=== PATIENT | female | born 1955 | race Caucasian/White ===

== ENCOUNTER → 2016-04-11 | Outpatient (REF) | payer BC ==
[2016-04-11 19:42] LABS: PERCENT SATURATION 21.1 % (13.2-37.4)
== END ==
LOC: M LAB REF 16:25
PROVIDERS: ATTEND Internal Medicine
DX: D50.9 Iron deficiency anemia, unspecified (principal)

== ENCOUNTER → 2016-05-20 | Outpatient (CLI) | payer BC ==
[~2016-05-20] VITALS: Ht 157.5 cm; Wt 86.2 kg
[~2016-05-20] MED LIST: AZEL0.1S3; FERR325T16 PO; FLON1SPR; MONT10TA2 PO; NS 1,000 ML IV SCH; OMEP40CA2 PO; PROPOFOL 200 MG/20 ML VIAL As Ordered ONE
--- NOTE | 2016-05-20 10:26 | ROOR ---
Patient Name: Alcira Silva Procedure Date: 05/20/2016 9:26 AM Date of : 1955 Age: 60 Room: [facility] Gender: Female Note Status: Finalized Procedure: Colonoscopy Indications: High risk colon cancer surveillance: Personal history of colonic polyps Providers: Delio PAYNE MD Referring MD: Velma Nevarez DO Requesting Provider: Medicines: Monitored Anesthesia Care Complications: No immediate complications. Procedure: Pre-Anesthesia Assessment: - The heart rate, respiratory rate, oxygen saturations, blood pressure, adequacy of pulmonary ventilation, and response to care were monitored throughout the procedure. The Colonoscope was introduced through the anus and advanced to the cecum, identified by appendiceal orifice and ileocecal valve. The patient tolerated the procedure well. The quality of the bowel preparation was good. Findings: The perianal exam findings include non-thrombosed external hemorrhoids. (Exam: Complete, Prep: Good or Excellent.) A 13 mm polyp was found in the splenic flexure. The polyp was flat. The polyp was removed with a hot snare. Polyp resection was incomplete, and the resected tissue was partially retrieved. Coagulation for tissue destruction using argon beam at 0.8 liters/minute and 25 rodriguez was successful. Area was successfully injected with 1 mL Anne ink for tattooing. Multiple medium-mouthed diverticula were found in the sigmoid colon. The colon (entire examined portion) was significantly redundant. Advancing the scope required withdrawing the scope and replacing with the adult endoscope. A 4 mm polyp was found in the ascending colon. The polyp was sessile. The polyp was removed with a cold snare. Resection and retrieval were complete. Impression: - Non-thrombosed external hemorrhoids found on perianal exam. - One 13 - 15 mm flat polyp at the splenic flexure, partially removed with a hot snare. Polyp resection was incomplete with snare, and the resected tissue was partially retrieved. Residual treated with argon beam coagulation. I suspect possible residual polyp, therefore location next to this polyp/polypoid fold was Injected with anne ink for future reference. - Diverticulosis in the sigmoid colon. - Redundant colon. - One 4 mm polyp in the ascending colon, removed with a cold snare. Resected and retrieved. Recommendation: - Repeat colonoscopy in 6 months for surveillance/retreatment of polyps greater than 1 cm in size. - Await pathology results. Delio Payne MD Delio PAYNE MD 05/20/2016 10:26:08 AM This report has been signed electronically. Number of Addenda: 0 Note Initiated On: 05/20/2016 9:26 AM Estimated Blood Loss: Estimated blood loss: none.
--- NOTE | 2016-05-20 11:19 | REP ---
PORTABLE CHEST: AP portable view of the chest is performed. There is mild linear bibasilar fibroatelectatic change. No infiltrate or pulmonary edema is seen. The heart is normal in size and the mediastinal silhouette is unremarkable. IMPRESSION: No acute infiltrate. Signed by Dorian Hung MD 05/20/2016 04:58 P
[2016-05-20 11:40] VITALS: BP 188/84
== END ==
LOC: M OPP 08:20
PROVIDERS: ATTEND Internal Medicine Gastroenterology
DX: Z12.11 Encounter for screening for malignant neoplasm of colon (principal); K64.4 Residual hemorrhoidal skin tags; D12.3 Benign neoplasm of transverse colon; K57.30 Diverticulosis of large intestine without perforation or abscess without bleeding; D12.2 Benign neoplasm of ascending colon; Q43.8 Other specified congenital malformations of intestine; R12 Heartburn; D64.9 Anemia, unspecified; M19.90 Unspecified osteoarthritis, unspecified site; J45.909 Unspecified asthma, uncomplicated; R06.83 Snoring; Z79.899 Other long term (current) drug therapy

== ENCOUNTER → 2016-06-14 | Outpatient (CLI) | payer BC ==
[~2016-06-14] MED LIST changes: -NS 1,000 ML IV SCH; -PROPOFOL 200 MG/20 ML VIAL As Ordered ONE
== END ==
LOC: M SLEEP HO 10:21
PROVIDERS: ATTEND Nurse Practitioner Adult Health
DX: G47.30 Sleep apnea, unspecified (principal)

== ENCOUNTER → 2016-08-11 | Outpatient (REF) | payer BC ==
[2016-08-11 13:52] LABS: PERCENT SATURATION 21.9 % (13.2-37.4)
== END ==
LOC: M LAB REF 12:21
PROVIDERS: ATTEND Internal Medicine
DX: D50.9 Iron deficiency anemia, unspecified (principal)

== ENCOUNTER 2016-10-20 10:54 | Outpatient (CLI) | payer BC ==
[~2016-10-20] VITALS: Ht 157.5 cm; Wt 86.2 kg
[~2016-10-20 10:54] MED LIST changes: +ACET-683 PO; +ALBU17IN PO; +BACL10TA2 PO; +DOXY100T16 PO; +ESTE500T PO; +MULT1TAB18 PO; +PRED20TA PO; +SYMB80INH PO
[2016-10-20] MEDS ORDERED: NS 1,000 ML IV ONE (12:00)
--- NOTE | 2016-10-20 14:05 | ROOR ---
Patient Name: Alcira Silva Procedure Date: 10/20/2016 1:50 PM Date of : 1955 Age: 60 Room: [facility] Gender: Female Note Status: Finalized Procedure: Upper GI endoscopy Indications: Surveillance for malignancy due to personal history of Lopez's esophagus, Follow-up of previous ablation treatment of Lopez's esophagus Providers: Delio BAKER MD Referring MD: Velma Nevarez DO Requesting Provider: Medicines: Monitored Anesthesia Care Complications: No immediate complications. Procedure: Pre-Anesthesia Assessment: - The heart rate, respiratory rate, oxygen saturations, blood pressure, adequacy of pulmonary ventilation, and response to care were monitored throughout the procedure. The Endoscope was introduced through the mouth, and advanced to the second part of duodenum. The upper GI endoscopy was accomplished without difficulty. The patient tolerated the procedure well. Findings: The Z-line was irregular and was found 37 cm from the incisors. This was biopsied with a cold forceps for histology. A small hiatal hernia was present. The exam was otherwise without abnormality. Impression: - Z-line irregular, 37 cm from the incisors. Biopsied. - Small hiatal hernia. - The examination was otherwise normal. Recommendation: - Use Prilosec (omeprazole) 20 mg PO BID for the rest of the patient's life.for barretts esophagus history - Telephone endoscopist for pathology results in 2 weeks. - repeat ablation therapy vs surveillance endoscopy in 3 years will be determined depending on biopsies.--Call me in 2 weeks for results. Delio Baker MD Delio BAKER MD 10/20/2016 2:04:38 PM This report has been signed electronically. Number of Addenda: 0 Note Initiated On: 10/20/2016 1:50 PM Estimated Blood Loss: Estimated blood loss: none.
--- NOTE | 2016-10-20 14:28 | ROOR ---
Patient Name: Alcira Silva Procedure Date: 10/20/2016 1:50 PM Date of : 1955 Age: 60 Room: [facility] Gender: Female Note Status: Finalized Procedure: Colonoscopy Indications: High risk colon cancer surveillance: Personal history of colonic polyps, Surveillance: Personal history of piecemeal removal of large sessile adenoma on last colonoscopy (less than 1 year ago) Providers: Delio BAKER MD Referring MD: Velma Nevarez DO Requesting Provider: Medicines: Monitored Anesthesia Care Complications: No immediate complications. Procedure: Pre-Anesthesia Assessment: - The heart rate, respiratory rate, oxygen saturations, blood pressure, adequacy of pulmonary ventilation, and response to care were monitored throughout the procedure. The Colonoscope was introduced through the anus and advanced to the cecum, identified by appendiceal orifice and ileocecal valve. The colonoscopy was performed without difficulty. The patient tolerated the procedure well. The quality of the bowel preparation was adequate and fair. Findings: The perianal and digital rectal examinations were normal. (EXAM: Complete, PREP: Fair/Adequate) Two sessile polyps were found in the descending colon. The polyps were diminutive in size. These polyps were removed with a cold snare. Resection and retrieval were complete. Multiple medium-mouthed diverticula were found in the sigmoid colon. A tattoo was seen at the splenic flexure. A post-polypectomy scar was found at the tattoo site. There was no evidence of residual polyp tissue. Small Internal Hemorrhoids. Impression: - Preparation of the colon was fair. - A tattoo was seen at the splenic flexure. A post-polypectomy scar was found at the tattoo site. There was no evidence of residual polyp tissue. - Two diminutive polyps in the descending colon, removed with a cold snare. Resected and retrieved. - Moderate diverticulosis in the sigmoid colon. - Small Internal Hemorrhoids. - The exam was otherwise normal to the cecum. Recommendation: - Repeat colonoscopy in 3 years for surveillance. Delio Baker MD Delio BAKER MD 10/20/2016 2:27:55 PM This report has been signed electronically. Number of Addenda: 0 Note Initiated On: 10/20/2016 1:50 PM Estimated Blood Loss: Estimated blood loss: none.
[2016-10-21] MEDS ORDERED: VITMTA PO (06:37)
[2016-10-21] MEDS ORDERED: MIRA3350 PO (06:37)
[2017-01-12] MEDS ORDERED: ADV250INH INH (10:22)
== END 2016-10-20 14:59 | disposition home or self-care (01) ==
LOC: M OPP 10:54
PROVIDERS: ATTEND Internal Medicine Gastroenterology
DX: Z09 Encounter for follow-up examination after completed treatment for conditions other than malignant neoplasm (principal); Z86.010 Personal history of colon polyps; D12.4 Benign neoplasm of descending colon; K57.30 Diverticulosis of large intestine without perforation or abscess without bleeding; K64.8 Other hemorrhoids; K22.70 Barrett's esophagus without dysplasia; K22.8 Other specified diseases of esophagus; K44.9 Diaphragmatic hernia without obstruction or gangrene; R12 Heartburn; D64.9 Anemia, unspecified; M54.2 Cervicalgia; G43.909 Migraine, unspecified, not intractable, without status migrainosus; J45.909 Unspecified asthma, uncomplicated; G47.30 Sleep apnea, unspecified; R06.83 Snoring; J01.90 Acute sinusitis, unspecified; Z87.891 Personal history of nicotine dependence; Z79.899 Other long term (current) drug therapy

== ENCOUNTER 2016-10-21 04:07 | Inpatient (IN) | payer BC ==
[~2016-10-21] VITALS: Ht 157.5 cm; Wt 86.3 kg
[2016-10-21] MEDS ORDERED: GI COCKTAIL 50ML BTL(HYOSCYAMINE/MAALOX/LIDOCAINE VISCOUS)(1:3:1) PO ONE (04:45)
[2016-10-21] MEDS ORDERED: MORPHINE 4 MG/ML 1ML SYRINGE IV ONE (04:45)
[2016-10-21] MEDS ORDERED: METOCLOPRAMIDE INJ 10MG/2ML VIAL (J2765) IV ONE (04:45)
[2016-10-21 05:22] LABS: BASO % 0.2 % (0.0-1.0); EOS % 0.5 % (0.0-3.0); LARGE UNSTAINED CELL # 0.1 K/mm3 (0.0-0.4); LARGE UNSTAINED CELL % 0.6 % (0.0-4.0); LYMPH % 7.8 % (24.0-44.0); MEAN CORPUSCULAR HEMOGLOBIN 28.4 pg (27.0-33.0); MEAN CORPUSCULAR HGB CONC 32.9 g/dl (32.0-36.5); MEAN CORPUSCULAR VOLUME 86.4 fl (80.0-96.0); MONO # 0.6 K/mm3 (0.0-0.8); MONO % 4.9 % (0.0-5.0); NEUTROPHILS # 9.8 K/mm3 (1.8-7.7); PLATELET COUNT, AUTOMATED 251 k/mm3 (150-450); RED CELL DISTRIBUTION WIDTH 13.3 % (11.5-14.5); WHITE BLOOD COUNT 11.4 K/mm3 (4.0-10.0)
[2016-10-21 05:40] LABS: ALBUMIN 3.7 GM/DL (3.2-5.2); ALBUMIN/GLOBULIN RATIO 1.28 (1.00-1.93); ALKALINE PHOSPHATASE 62 U/L (45-117); ALT/SGPT 82 U/L (12-78); AMYLASE 196 U/L (25-115); ANION GAP 9 MEQ/L (8-16); AST/SGOT 88 U/L (15-37); BILIRUBIN,DIRECT 0.3 MG/DL (0.0-0.2); BILIRUBIN,TOTAL 0.6 MG/DL (0.2-1.0); BLOOD UREA NITROGEN 8 MG/DL (7-18); CALCIUM LEVEL 8.5 MG/DL (8.5-10.1); CARBON DIOXIDE LEVEL 27 MEQ/L (21-32); CHLORIDE LEVEL 109 MEQ/L (98-107); CREATININE FOR GFR 0.64 MG/DL (0.55-1.02); GLOMERULAR FILTRATION RATE > 60.0 (>51); GLUCOSE, FASTING 144 MG/DL (70-105); POTASSIUM SERUM 3.9 MEQ/L (3.5-5.1); SODIUM LEVEL 145 MEQ/L (136-145); TOTAL PROTEIN 6.6 GM/DL (6.4-8.2)
[2016-10-21] MEDS ORDERED: NS 1,000 ML IV ONE ×2 (06:00→19:45)
[2016-10-21] MEDS ORDERED: ISOVUE-370 76% 100ML VIAL (Q9967) As Ordered ONE (06:03)
[2016-10-21] MEDS ORDERED: MIRA3350 PO (06:37)
[2016-10-21] MEDS ORDERED: VITMTA PO (06:37)
--- NOTE | 2016-10-21 06:40 | REPUSA ---
CLINICAL HISTORY: Abdominal pain. TECHNIQUE: Multiple axial, sagittal and coronal CT images were obtained through the abdomen and pelvi s after administration of intravenous contrast material. COMMENTS: Small sliding hiatal hernia. Thickening of the gastroesophageal junction. The liver is moderately enlarged with decreased attenuation without mass or defect. There is mild ext rahepatic biliary ductal dilatation. The spleen is normal. The gallbladder is distended. Diffuse thic kening of the wall of the gallbladder. The pancreas is of normal contour and attenuation characterist ics. There is no evidence of adrenal mass. Minimal peripancreatic fat stranding. Both kidneys demonstrate prompt and equal nephrograms. The kidneys are normal in size, shape and conf iguration. There is no evidence of renal or ureteral mass. No renal or ureteral calculi are identifie d. There is no hydroureter or hydronephrosis. No evidence for appendicitis. There is no bowel wall thickening. No evidence for small or large leo l obstruction. There is no evidence of abdominal ascites or lymphadenopathy. There is no evidence of intrinsic or extrinsic bladder mass. Thickened bladder. There is no pelvic as cites or lymphadenopathy. Uncomplicated diverticulosis. Images of the lung bases show no evidence of pleural or parenchymal mass. There are no pleural effusi ons. The bony structures are free of lytic or blastic lesions. IMPRESSION: Hepatomegaly with fatty infiltration. Suspected acute cholecystitis. Mildly dilated extrahepatic biliary tree. Minimal pancreatitis. Small sliding hiatal hernia. Thickened gastroesophageal junction. Thank you for your kind referral of this patient.
[2016-10-21] MEDS ORDERED: BACLOFEN 10 MG TAB PO PRN (08:15)
[2016-10-21] MEDS ORDERED: ALBUTEROL 90 MCG/ACT 8GM HFA INHALER INH PRN (08:15)
--- NOTE | 2016-10-21 08:22 | REP ---
Abdominal upper quadrant ultrasound: There is a negative Sanchez's sign to transducer pressure. There is biliary sludge in the gallbladder. There is no evidence of cholelithiasis. There is no gallbladder wall thickening or pericholecystic fluid. There is no intrahepatic or extrahepatic biliary duct dilatation, the common duct measures 4.5 mm in diameter. The liver is homogeneous but echogenic compatible with hepato steatosis. The pancreas is obscured by bowel gas. There is no right renal calculus, mass, cyst or hydronephrosis. The right kidney is normal size measuring 13.0 cm craniocaudad length. Impression: No biliary duct dilatation. No cholelithiasis. There is biliary sludge in the gallbladder. Hepato steatosis. Pancreas obscured by bowel gas. Signed by Dorian Quintero MD 10/21/2016 08:14 A
--- NOTE | 2016-10-21 08:58 | REP ---
ABDOMEN, FLAT AND UPRIGHT; PA CHEST, THREE VIEWS: HISTORY: Epigastric pain. Air is present in small and large intestine. There are no air fluid levels or dilated loops of intestine. There is no pneumoperitoneum. The lungs are clear. IMPRESSION: Nonspecific bowel gas pattern. Signed by Franco Jama MD 10/21/2016 09:31 A
[2016-10-21] MEDS: SYMBICORT 80/4.5MCG INHALER 6GM INH SCH ×2 (09:00→20:58)
[2016-10-21 11:05] VITALS: BP 155/72
[2016-10-21] MEDS: NS 1,000 ML IV SCH ×3 (11:10→21:55)
[2016-10-21] MEDS: MEROPENEM INJ 1 GM in D5W MINI-BAG PLUS 100 ML IV SCH ×2 (11:10→17:43)
[2016-10-21] MEDS: PANTOPRAZOLE 40MG INJ (PROTONIX) (C9113) IV SCH (11:11)
[2016-10-21] MEDS: MORPHINE 2 MG/ML 1ML SYRINGE IV PRN ×3 (11:11→17:44)
[2016-10-21] MEDS: ONDANSETRON 4MG/2ML VIAL (J2405) IV PRN ×2 (11:11→17:43)
[2016-10-21] MEDS: MONTELUKAST 10 MG TAB PO SCH (11:12)
[2016-10-21] MEDS: ENOXAPARIN 40 MG/0.4 ML SYRINGE (J1650) SC SCH (11:12)
--- NOTE | 2016-10-21 11:18 | REP ---
MRCP EXAM: MRCP exam is accomplished utilizing multiple heavily T2-weighted sequences in the axial and coronal planes with MIP reconstruction images performed. The gallbladder is moderately distended with no definite filling defect. There does appear to be gallbladder wall edema. The central intrahepatic bile ducts are slightly dilated. There is slight dilatation of the common bile duct up to 8 mm. There appears to be focal narrowing in the distal common bile duct. There also appears to be a somewhat linear filling defect in the mid and distal common bile duct . This may represent a clot. The pancreatic duct is mildly dilated up to 5 mm. The liver and pancreatic signal is unremarkable. There are small cysts in the left kidney. No free fluid is seen in the visualized abdomen. IMPRESSION: Moderately distended gallbladder with diffuse gallbladder wall edema. Very mild dilatation of intrahepatic bile ducts centrally and also of the common bile duct. There appears to be focal narrowing of the distal common bile duct. A linear filling defect in the mid to distal common bile duct may represent a clot. There is mild dilatation of the pancreatic duct. Signed by Dorian Hung MD 10/21/2016 05:08 P
[2016-10-21] MEDS: AZELASTINE 137MCG NASAL SPY 30 ML (ASTELIN) SCH (11:34)
[2016-10-21 14:00] VITALS: BP 131/62
[2016-10-21] MEDS: ACETAMINOPHEN TAB 650MG DOSE (2X325MG) PO PRN (15:36)
--- NOTE | 2016-10-21 18:29 | HPEPDOC ---
General Date of Admission Oct 21, 2016 at 08:13 Chief Complaint The patient is a 60-year-old female admitted with a reason for visit of Acute Cholecystitis. Source: Patient Exam Limitations: No limitations History of Present Illness 60-year-old female with past medical history of asthma, obesity, Lopez's esophagus status post ablation in the past, and history of sessile polyp on colonoscopy in 2016 presented to the ER with a chief complaint of nausea, vomiting, and abdominal pain over the last 24 hours. The patient states that she had a surveillance EGD and Colonoscopy with Dr. Maria yesterday and notes that there were no acute findings noted. Subsequent patient states that she has developed abdominal pain in the supraumbilical/epigastric area with associated nausea and vomiting. She denies a similar occurrence in the past. She denies recent travel, or sick contacts. She denied any episodes of diarrhea. There were no associated alleviating or aggravating factors. The patient presents to the ER for further evaluation and management of the same. In the ER, laboratory work was suggestive of pancreatitis with mild elevation of liver function tests. A CT scan of the abdomen revealed suspected acute cholecystitis with mild dilated extrahepatic biliary tree. An ultrasound of the gallbladder however revealed no biliary duct dilatation or any cholelithiasis. An MRCP was ordered and this revealed mild dilatation of intrahepatic bile ducts and also the common bile duct, a linear filling defect in the mid to distal common bile duct possibly parts representative of a clot. The patient was subsequently admitted to the hospitalist service, and a consult was placed to gastroenterology for further evaluation and management. Home Medications Scheduled (Flonase Allergy Relief) 50 Mcg/Act Spr, 2 SPRAYS NA QHS, (Reported) Azelastine Hydrochloride (Azelastine HCl) 137 Mcg/[place] Spr, 2 SPRAY NA DAILY, ( Reported) Budesonide/Formoterol (Symbicort 80-4.5 Mcg/Act) 60 Puff/Inhaler Aers, 1 PUFF PO BID, (Reported) Ferrous Gluconate (Ferrous Gluconate) 324 Mg Tab, 324 MG PO QPM, (Reported) Montelukast Sodium (Montelukast Sodium) 10 Mg Tab, 10 MG PO DAILY, (Reported) Multivitamins *[facility] STOCKED* (Thera M Plus *[facility] STOCKED*) 1 Tab Tab, 1 TAB PO QPM , (Reported) Omeprazole (Omeprazole) 40 Mg Cap, 40 MG PO QPM, (Reported) Scheduled PRN Acetaminophen (Acetaminophen Extra Stren) 500 Mg Tab, 1,000 MG PO Q6HP PRN for PAIN, (Reported) Albuterol Sulfate (Ventolin Hfa) 200 Puff/8 Gm Aers, 2 PUFFS PO QID PRN for SHORTNESS OF BREATH, (Reported) Baclofen (Baclofen) 10 Mg Tab, 10 MG PO DAILY PRN for MUSCLE SPASMS, (Reported) Polyethylene Glycol (Miralax) 1 Pow Pow, 17 GM PO DAILY PRN for CONSTIPATION, ( Reported) Allergies Coded Allergies: No Known Allergies (Unverified , 10/13/16) Past Medical History Medical History As noted in HPI. Surgical History Lopez's esophagus ablation, colonoscopy Family History Significant Family History: Other (multiple family members on both sides with a history of heart disease) Social History * Smoker: Denies Alcohol: Denies Drugs: denies Recent Travel/Sick Contacts: Denies: Recent travel, Recent sick contacts Lives at home with her . Retired. Functionally independent at baseline. Review of Symptoms Other systems 10 point review of systems negative unless otherwise specified in HPI. Physical Examination General Exam: Positive: Alert, Cooperative, No Acute Distress ENT Exam: Positive: Atraumatic, Mucous membr. moist/pink Neck Exam: Negative: JVD Chest Exam: Positive: Clear to auscultation, Normal air movement Heart Exam: Positive: Rate Normal, Normal S1, Normal S2 Telemetry: Positive: Sinus Abdomen Exam: Positive: Soft, Tenderness (mild tenderness to deep palpation in the supraumbilical/epigastric area. No rebound tenderness or rigidity or guarding noted.) Extremity Exam: Negative: Tenderness, Swelling Psych Exam: Positive: Oriented x 3 Vital Signs Vital Signs Date Time Temp Pulse Resp B/P (MAP) Pulse Ox O2 Delivery O2 Flow Rate FiO2 10/21/16 17:44 16 10/21/16 14:00 100.3 118 131/62 (85) 92 Room Air Laboratory Data Labs 24H Laboratory Tests 2 10/21/16 05:05: White Blood Count 11.4H, Red Blood Count 4.60, Hemoglobin 13.1, Hematocrit 39.8 , Mean Corpuscular Volume 86.4, Mean Corpuscular Hemoglobin 28.4, Mean Corpuscular Hemoglobin Concent 32.9, Red Cell Distribution Width 13.3, Platelet Count 251, Neutrophils (%) (Auto) 86.0H, Lymphocytes (%) (Auto) 7.8L, Monocytes (%) (Auto) 4.9, Eosinophils (%) (Auto) 0.5, Basophils (%) (Auto) 0.2, Neutrophils # (Auto) 9.8H, Lymphocytes # (Auto) 1.0L, Monocytes # (Auto) 0.6, Eosinophils # (Auto) 0.0, Basophils # (Auto) 0.0, Large Unclassified Cells % 0.6 , Large Unclassified Cells # 0.1, Anion Gap 9, Glomerular Filtration Rate > 60.0 , Calcium Level 8.5, Aspartate Amino Transf (AST/SGOT) 88H, Alanine Aminotransferase (ALT/SGPT) 82H, Alkaline Phosphatase 62, Total Bilirubin 0.6, Direct Bilirubin 0.3H, Total Creatine Kinase 42, Creatine Kinase MB 1.0, Creatine Kinase MB Relative Index 2.38, Troponin I < 0.02, Total Protein 6.6, Albumin 3.7, Albumin/Globulin Ratio 1.28, Amylase Level 196H, Lipase 2324H 10/21/16 16:15: Total Creatine Kinase 41, Creatine Kinase MB 1.0, Creatine Kinase MB Relative Index 2.43, Troponin I < 0.02 CBC/BMP Laboratory Tests 10/21/16 05:05 Red Blood Count 4.60, Mean Corpuscular Volume 86.4, Mean Corpuscular Hemoglobin 28.4, Mean Corpuscular Hemoglobin Concent 32.9, Red Cell Distribution Width 13.3 , Neutrophils (%) (Auto) 86.0 H, Lymphocytes (%) (Auto) 7.8 L, Monocytes (%) ( Auto) 4.9, Eosinophils (%) (Auto) 0.5, Basophils (%) (Auto) 0.2, Neutrophils # ( Auto) 9.8 H, Lymphocytes # (Auto) 1.0 L, Monocytes # (Auto) 0.6, Eosinophils # ( Auto) 0.0, Basophils # (Auto) 0.0 Microbiology Microbiology 10/21/16 Blood Culture, Received Pending Plan / VTE VTE Prophylaxis Ordered?: Yes Plan Plan Abdominal pain, nausea, vomiting 2/[address] scan of the abdomen revealed suspected acute cholecystitis with mild dilated extrahepatic biliary tree. Ultrasound of the gallbladder however revealed no biliary duct dilatation or any cholelithiasis. MRCP revealed mild dilatation of intrahepatic bile ducts and also the common bile duct, a linear filling defect in the mid to distal common bile duct possibly parts representative of a clot. Lipase level of 2300 noted IV fluid hydration Nothing by mouth Pain medications ordered We will continue to monitor the patient's progress Mild Dilatation of Intrahepatic Bile Duct on MRCP ?Clot noted on MRCP LFTs also noted to be slightly elevated AST/ALT: 88/82 I did discuss these results and consult GI--we will cont with management as delineated above--If patient's LFTs worsen, or if clinically indicated--we will consider an Endoscopic U/S tomorrow Blood Cultures ordered Meropenem 1gm q8h ordered for empiric coverage We will cont to monitor Asthma, stable Continue albuterol when necessary, Symbicort, Singulair GERD, history of Lopez's esophagus Protonix DVT prophylaxis Lovenox subcutaneously JULIAN PERES MD Oct 21, 2016 18:29
--- NOTE | 2016-10-21 19:41 | ECGEPIP ---
Stationary ECG Study [facility] - ED Test Date: 2016-10-21 Pat Name: MISSY MATHEW Department: Room: - Gender: F Manufacturing Business Analyst: : 1955 Requested By: NATASHA BAILEY Order Number: [id number] Reading MD: Gabino Ramirez Measurements Intervals [place] Rate: 80 P: 50 SC: 150 QRS: 14 QRSD: 85 T: 30 QT: 365 QTc: 423 Interpretive Statements SINUS RHYTHM LOW QRS VOLTAGE IN PRECORDIAL LEADS NO OLD ECG FOR COMPARISON Electronically Signed On 10-21-2016 19:40:52 EDT by Gabino Ramirez
[2016-10-21 20:07] LABS: CHOLESTEROL LEVEL 150 MG/DL (<200); TRIGLYCERIDES LEVEL 61 MG/DL (<150)
[2016-10-21] MEDS: METOCLOPRAMIDE INJ 10MG/2ML VIAL (J2765) IV PRN (20:14)
--- NOTE | 2016-10-21 20:42 | CR.PDOC ---
[facility] Consultation Consultation DATE OF CONSULTATION: Oct 21, 2016 at 17:05 PRIMARY CARE PHYSICIAN: Dr. Christophe Cuevas REFERRING PROVIDER: Dr. Romano ATTENDING PHYSICIAN: Dr. Romano REASON FOR CONSULTATION/CHIEF COMPLAINT: Pancreatitis and abnormal imaging. HISTORY OF PRESENT ILLNESS: 60-year-old female with asthma, obesity ( BMI 35), Lopez's esophagus status post ablation in the past, and history of sessile polyp on colonoscopy in 2016 presented to the ER with complaints of nausea, vomiting, and abdominal pain. Work up showed elevated lipase and MRCP showed prominent CBD -- GI consulted for the same. Patient reports that the she started having epigastric abdominal pain with nausea and vomiting after she went home after the endoscopic procedures she had yesterday in [facility]. She reports having problems in past as well with anesthesia medications and she feels nauseous usually. Denies any fever at home but had fever during admission. Pertinent negative GI symptoms: Patient denies having alcohol, OTC medications, fall or injury to abdomen, diarrhea, hematemesis, melena or hematochezia. Patient is having regular bowel movements and passing gas. 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 Skin: No rash : No hematuria, No burning sensation of the urine ENT: No ear discharge/ pain, No dysphagia. Eyes: No photophobia. ALLERGIES: NKDA. HOME MEDICATIONS: reviewed. MEDICAL H/O: As above. SURGICAL H/O: None on abdomen. SOCIAL H/O: Denies Alcohol, smoking, IVDA/ drugs. FAMILY H/O OF GI CANCERS - None PRIOR ENDOSCOPIES: --- EGD and Colonoscopy -- results reviewed. PRIOR GI EVALUATION: Follows with Dr. Baker Exam: Vitals: reviewed GENERAL: Alert and oriented x 3, Some distress form pain. HEENT: NO pallor, no icterus. Normal oropharynx, NO cervical lymph nodes. CHEST: symmetric with bilateral clear air entry, CVS: S1, S2 heard, normal, no murmurs . ABDOMEN: Obese, no surgical scars, epigastric tenderness with no rigidity or guarding, no palpable masses, normal bowel sounds heard. RECTAL EXAM: Patient refused / Deferred at this time. EXTREMITIES: no pedal edema, pulses palpable. HEAT TREATER HELPER: no focal motor or sensory deficits. Moves all extremities SKIN: no rash. Labs: reviewed. Normal Bilirubin and ALP. Elevated lipase. Imaging: reviewed. MRCP reviewed. Impression: - Elevated lipase and typical abdominal pain --- Acute pancreatitis -- unclear etiology -- DDx- medications vs idiopathic. No imaging evidence of necrosis. - Abnormal MRCP showing prominent CBD but normal bilirubin and No gall stones. Likely artifact. Will need to closely monitor clinical course. - New onset fever -- need to r/o sepsis. Recommendations: -- NPO for now -- IV fluids -- prefer ringers lactate - Give one litre bolus drip and start at 200 cc/ hour for first 12 hours and then decrease to atleast 100 cc/ hour for the next 12 hours. -- Empiric broad spectrum antibiotics. -- Send blood cultures prior to antibiotics dose. -- Rpeat LFTs and CBC daily -- If worsening LFTs need to transfer to [place] -- If stable LFTs and clinical status improves with conservative therapy will need elective evaluation with EUS and/ or ERCP -- The plan of care discussed with patient and all her questions were answered. Also updated Dr. Baker (primary screw machine adjuster automatic). -- The recommendations updated to primary team. Allergies Coded Allergies: No Known Allergies (Unverified , 10/13/16) Home Medications Scheduled (Flonase Allergy Relief) 50 Mcg/Act Spr, 2 SPRAYS NA QHS, (Reported) Azelastine Hydrochloride (Azelastine HCl) 137 Mcg/[place] Spr, 2 SPRAY NA DAILY, ( Reported) Budesonide/Formoterol (Symbicort 80-4.5 Mcg/Act) 60 Puff/Inhaler Aers, 1 PUFF PO BID, (Reported) Ferrous Gluconate (Ferrous Gluconate) 324 Mg Tab, 324 MG PO QPM, (Reported) Montelukast Sodium (Montelukast Sodium) 10 Mg Tab, 10 MG PO DAILY, (Reported) Multivitamins *[facility] STOCKED* (Thera M Plus *[facility] STOCKED*) 1 Tab Tab, 1 TAB PO QPM , (Reported) Omeprazole (Omeprazole) 40 Mg Cap, 40 MG PO QPM, (Reported) Scheduled PRN Acetaminophen (Acetaminophen Extra Stren) 500 Mg Tab, 1,000 MG PO Q6HP PRN for PAIN, (Reported) Albuterol Sulfate (Ventolin Hfa) 200 Puff/8 Gm Aers, 2 PUFFS PO QID PRN for SHORTNESS OF BREATH, (Reported) Baclofen (Baclofen) 10 Mg Tab, 10 MG PO DAILY PRN for MUSCLE SPASMS, (Reported) Polyethylene Glycol (Miralax) 1 Pow Pow, 17 GM PO DAILY PRN for CONSTIPATION, ( Reported) DUKE GEORGES MD Oct 21, 2016 20:42
[2016-10-21] MEDS: MULTIVITAMINS/MINERALS THERAP 1 TAB PO SCH (21:55)
[2016-10-21] MEDS: FERROUS GLUCONATE 324 MG TAB PO SCH (21:56)
[2016-10-21 22:00] VITALS: BP 129/66
[2016-10-21] MEDS: FLUTICASONE PROP 0.05% NASAL SPRAY 16 GM (FLONASE) SCH (22:47)
[2016-10-22] VITALS (8 sets, daily range): BP systolic 121–139; BP diastolic 63–76
[2016-10-22] MEDS: NS 1,000 ML IV SCH ×6 (00:19→23:40)
[2016-10-22] MEDS: MEROPENEM INJ 1 GM in D5W MINI-BAG PLUS 100 ML IV SCH ×3 (00:19→18:30)
[2016-10-22] MEDS: ACETAMINOPHEN TAB 650MG DOSE (2X325MG) PO PRN (06:10)
[2016-10-22 06:38] LABS: MEAN CORPUSCULAR HEMOGLOBIN 28.5 pg (27.0-33.0); MEAN CORPUSCULAR HGB CONC 32.8 g/dl (32.0-36.5); MEAN CORPUSCULAR VOLUME 86.9 fl (80.0-96.0); RED CELL DISTRIBUTION WIDTH 13.3 % (11.5-14.5); WHITE BLOOD COUNT 9.1 K/mm3 (4.0-10.0)
[2016-10-22 07:02] LABS: ALBUMIN 2.8 GM/DL (3.2-5.2); ALBUMIN/GLOBULIN RATIO 0.88 (1.00-1.93); ALKALINE PHOSPHATASE 126 U/L (45-117); ALT/SGPT 652 U/L (12-78); ANION GAP 8 MEQ/L (8-16); AST/SGOT 628 U/L (15-37); BILIRUBIN,TOTAL 2.1 MG/DL (0.2-1.0); BLOOD UREA NITROGEN 6 MG/DL (7-18); CARBON DIOXIDE LEVEL 24 MEQ/L (21-32); CHLORIDE LEVEL 111 MEQ/L (98-107); GLOMERULAR FILTRATION RATE > 60.0 (>51); GLUCOSE, FASTING 102 MG/DL (70-105); MAGNESIUM LEVEL 2.1 MG/DL (1.8-2.4); POTASSIUM SERUM 3.6 MEQ/L (3.5-5.1); SODIUM LEVEL 143 MEQ/L (136-145)
[2016-10-22] MEDS: SYMBICORT 80/4.5MCG INHALER 6GM INH SCH ×2 (07:32→20:38)
[2016-10-22] MEDS: ONDANSETRON 4MG/2ML VIAL (J2405) IV PRN ×3 (08:44→19:38)
[2016-10-22] MEDS: PANTOPRAZOLE 40MG INJ (PROTONIX) (C9113) IV SCH (08:44)
[2016-10-22] MEDS: MONTELUKAST 10 MG TAB PO SCH (08:44)
[2016-10-22] MEDS: ENOXAPARIN 40 MG/0.4 ML SYRINGE (J1650) SC SCH ×2 (08:45→08:49)
[2016-10-22] MEDS: AZELASTINE 137MCG NASAL SPY 30 ML (ASTELIN) SCH (08:49)
[2016-10-22 10:32] LABS: INR 1.21
[2016-10-22] MEDS: MORPHINE 2 MG/ML 1ML SYRINGE IV PRN ×4 (11:34→22:27)
[2016-10-22] MEDS: METOCLOPRAMIDE INJ 10MG/2ML VIAL (J2765) IV PRN (11:34)
--- NOTE | 2016-10-22 13:31 | IPNPDOC ---
Subjective Date Seen The patient was seen on 10/22/16. Subjective Chief Complaint/HPI Patient seen and examined at the bedside this morning. States that her abdominal pain has resolved, but she does still feel tired/lethargic. Denies any acute complaints of nausea/vomiting/diarrhea. Objective Physical Examination General Exam: Positive: Alert, Cooperative, No Acute Distress ENT Exam: Positive: Atraumatic, Mucous membr. moist/pink Neck Exam: Negative: JVD Chest Exam: Positive: Clear to auscultation, Normal air movement Heart Exam: Positive: Rate Normal, Normal S1, Normal S2 Abdomen Exam: Positive: Soft, Negative: Tenderness Extremity Exam: Negative: Tenderness, Swelling Psych Exam: Positive: Oriented x 3 Assessment /Plan Plan/VTE VTE Prophylaxis Ordered?: Yes Plan Mild Dilatation of Intrahepatic Bile Duct on MRCP ?Clot noted on MRCP, possible stone vs mass? LFTs worsening this morning in the 600s, with elevated T-Cruz 2.1, Alk Phos 126 --I did discuss these results with Dr. Rayo of GI this morning--he will schedule the patient for an ERCP this afternoon for further evaluation and management T. Max of 100.3 yesterday afternoon. WBC wnl today. Blood Cultures pending Meropenem 1gm q8h We will cont to monitor the patient, and follow up with ERCP results Abdominal pain, nausea, vomiting 2/[address] scan of the abdomen revealed suspected acute cholecystitis with mild dilated extrahepatic biliary tree. Ultrasound of the gallbladder however revealed no biliary duct dilatation or any cholelithiasis. MRCP revealed mild dilatation of intrahepatic bile ducts and also the common bile duct, a linear filling defect in the mid to distal common bile duct possibly sales representative public utilities of a clot. Lipase level down trending Cont aggressive IV fluid hydration Nothing by mouth Pain medications ordered We will continue to monitor the patient's progress Asthma, stable Continue albuterol when necessary, Symbicort, Singulair GERD, history of Lopez's esophagus Protonix DVT prophylaxis Lovenox subcutaneously VS, I&O, 24H, Fishbone Vital Signs/I&O Vital Signs Date Time Temp Pulse Resp B/P (MAP) Pulse Ox O2 Delivery O2 Flow Rate FiO2 10/22/16 12:00 16 10/22/16 06:00 98.4 92 121/66 (84) 95 Room Air I&O- Last 24 Hours up to 6 AM 10/22/16 06:00 Intake Total 1920 ml Output Total 800 ml Balance 1120 ml Laboratory Data 24H LABS Laboratory Tests 2 10/21/16 16:15: Total Creatine Kinase 41, Creatine Kinase MB 1.0, Creatine Kinase MB Relative Index 2.43, Troponin I < 0.02, Triglycerides Level 61, LDL Cholesterol 94.8, Total Cholesterol 150, Non-HDL Cholesterol (LDL + VLDL) 107, Total HDL Cholesterol 43, Cholesterol/HDL Ratio 3.488 10/22/16 00:06: Total Creatine Kinase 37, Creatine Kinase MB 1.0, Creatine Kinase MB Relative Index 2.70, Troponin I < 0.02 10/22/16 06:21: Anion Gap 8, Glomerular Filtration Rate > 60.0, Blood Urea Nitrogen 6L, Creatinine 0.60, Sodium Level 143, Potassium Level 3.6, Chloride Level 111H, Carbon Dioxide Level 24, Calcium Level 8.0L, Aspartate Amino Transf (AST/SGOT) 628H, Alanine Aminotransferase (ALT/SGPT) 652H, Alkaline Phosphatase 126H, Total Bilirubin 2.1#H, Total Protein 6.0L, Albumin 2.8#L, Magnesium Level 2.1, Albumin/Globulin Ratio 0.88L, Lipase 887H 10/22/16 10:01: Prothrombin Time 15.5H, Prothromb Time International Ratio 1.21, Activated Partial Thromboplast Time 35.4 CBC/BMP Laboratory Tests 10/22/16 06:21 Red Blood Count 3.92 L, Mean Corpuscular Volume 86.9, Mean Corpuscular Hemoglobin 28.5, Mean Corpuscular Hemoglobin Concent 32.8, Red Cell Distribution Width 13.3, Calcium Level 8.0 L, Aspartate Amino Transf (AST/SGOT) 628 H, Alanine Aminotransferase (ALT/SGPT) 652 H, Alkaline Phosphatase 126 H, Total Bilirubin 2.1 #H, Total Protein 6.0 L, Albumin 2.8 #L Microbiology Microbiology 10/21/16 Blood Culture, Received Pending JULIAN PERES MD Oct 22, 2016 13:31
[2016-10-22] MEDS ORDERED: ISOVUE-300 61% 50ML VIAL (Q9967) As Ordered ONE ×2 (16:20→17:42)
--- NOTE | 2016-10-22 16:40 | IPNPDOC ---
Date Seen The patient was seen on 10/22/16. 4:30 PM Progress Note Interval history: Patient is noted with persistent abdominal pain with new onset jaundice. No recurrent fever but still had nausea and unable to tolerate PO diet. Exam: Vitals: reviewed GENERAL: Alert and oriented x 3, Some distress form pain. HEENT: NO pallor, Mild icterus. Normal oropharynx, NO cervical lymph nodes. CHEST: symmetric with bilateral clear air entry, CVS: S1, S2 heard, normal, no murmurs . ABDOMEN: Obese, no surgical scars, epigastric tenderness with no rigidity or guarding, no palpable masses, normal bowel sounds heard. EXTREMITIES: no pedal edema, pulses palpable. HARNESS WORKER: no focal motor or sensory deficits. Moves all extremities SKIN: no rash. Labs: reviewed. Worsening LFTs with Bilirubin 2.1 Transaminases - 600. Elevated lipase. Imaging: reviewed. MRCP reviewed. Impression: - Elevated lipase and typical abdominal pain --- Acute pancreatitis --with echolestatic LFTs with GB sludge - Likely etiology -- Stuck CBD stone vs cholangitis ( less likely).. -- DDx- medications. No imaging evidence of necrosis. On broad spectrum antibiotics. - Abnormal MRCP showing prominent CBD with blood clot - Could be a CBD stone/ sludge. Recommendations: -- NPO for now -- IV fluids -- continue ringers lactate -- Empiric broad spectrum antibiotics. -- Follow up blood cultures -- Patient is scheduled for emergent ERCP. The Procedure, its indications, benefits, risks ( including but not limited to worsening pancreatitis, its complications, infection, bleeding, perforation, need for urgent surgery, blood transfusion, prolonged intubation, and even ), limitation, and all alternatives including no intervention were explained to patient and her who verbalized understanding and agreed for the procedure. -- Repeat LFTs and CBC daily -- The plan of care discussed with patient and all her questions were answered. Also updated Dr. Baker (primary chief operator hydroformer). -- The recommendations updated to primary team. DUKE GEORGES MD Oct 22, 2016 16:40
[2016-10-22] MEDS ORDERED: ROCURONIUM BROMIDE 50 MG/5 ML VIAL/SYRINGE As Ordered ONE (16:51)
[2016-10-22] MEDS ORDERED: fentaNYL 100 MCG/2 ML INJECTION (J3010) As Ordered ONE ×2 (16:51→17:18)
[2016-10-22] MEDS ORDERED: MIDAZOLAM INJ 2 MG/2 ML VIAL (J2250) As Ordered ONE (16:51)
[2016-10-22] MEDS ORDERED: SUCCINYLCHOLINE 100 MG/5 ML SYRINGE (J0330) As Ordered ONE (16:51)
[2016-10-22] MEDS ORDERED: LIDOCAINE 2% INJ 100 MG/5 ML SDV (FOR ANES.) As Ordered ONE (16:51)
[2016-10-22] MEDS ORDERED: PROPOFOL 200 MG/20 ML VIAL As Ordered ONE (16:51)
[2016-10-22] MEDS ORDERED: PHENYLephrine HCL 500 MCG/5 ML (100MCG/ML) SYRINGE (J2370) As Ordered ONE ×2 (17:00→17:31)
[2016-10-22] MEDS ORDERED: dexameTHASONE 4 MG/ML 1ML VIAL (J1100) As Ordered ONE (17:01)
[2016-10-22] MEDS ORDERED: METOCLOPRAMIDE INJ 10MG/2ML VIAL (J2765) As Ordered ONE (17:02)
[2016-10-22] MEDS ORDERED: GLYCOPYRROLATE INJ 0.2 MG/ML 2 ML VIAL As Ordered ONE (17:56)
[2016-10-22] MEDS ORDERED: NEOSTIGMINE 1MG/ML 5 ML SYRINGE (J2710) As Ordered ONE (17:57)
[2016-10-22] MEDS ORDERED: ONDANSETRON 4MG/2ML VIAL (J2405) As Ordered ONE (17:57)
--- NOTE | 2016-10-22 18:24 | ROOR ---
Patient Name: Alcira Silva Procedure Date: 10/22/2016 4:35 PM Date of : 1955 Age: 60 Room: Main OR Gender: Female Note Status: Finalized Procedure: ERCP Indications: Elevated liver enzymes, Acute pancreatitis suspected due to gallstone Providers: Daryl Rayo MD, Delio PAYNE MD Referring MD: Velma Nevarez DO Requesting Provider: Medicines: Monitored Anesthesia Care Complications: No immediate complications. Procedure: Pre-Anesthesia Assessment: - Prior to the procedure, a History and Physical was performed, and patient medications and allergies were reviewed. The patient is competent. The risks and benefits of the procedure and the sedation options and risks were discussed with the patient. All questions were answered and informed consent was obtained. Patient identification and proposed procedure were verified by the physician, the nurse and the special forces warrant officer in the procedure room. Mental Status Examination: alert and oriented. Airway Examination: normal oropharyngeal airway and neck mobility. Respiratory Examination: clear to auscultation. CV Examination: normal. Prophylactic Antibiotics: The patient does not require prophylactic antibiotics. Prior Anticoagulants: The patient has taken no previous anticoagulant or antiplatelet agents. ASA Grade Assessment: III - A patient with severe systemic disease. After reviewing the risks and benefits, the patient was deemed in satisfactory condition to undergo the procedure. The anesthesia plan was to use general anesthesia. Immediately prior to administration of medications, the patient was re-assessed for adequacy to receive sedatives. The heart rate, respiratory rate, oxygen saturations, blood pressure, adequacy of pulmonary ventilation, and response to care were monitored throughout the procedure. The physical status of the patient was re-assessed after the procedure. The Duodenoscope was introduced through the mouth, and advanced to the duodenum and used to inject contrast into the bile, dorsal and ventral pancreatic ducts. The ERCP was accomplished without difficulty. The patient tolerated the procedure well. Findings: The lab animal technician film was normal. The esophagus was successfully intubated under direct vision. The scope was advanced to a normal major papilla in the descending duodenum without detailed examination of the pharynx, larynx and associated structures, and upper GI tract. The upper GI tract was grossly normal except duodenal diverticulum near major papilla. 0.035 inch x 260 cm straight Hydra Jagwire was passed into the ventral pancreatic duct. One 5 Fr by 3 cm plastic stent with a full external pigtail and no internal flaps was placed into the ventral pancreatic duct. The stent was in good position. Later the bile duct was deeply cannulated with the short-nosed traction sphincterotome. Contrast was injected. I personally interpreted the bile duct and pancreatic duct images. Ductal flow of contrast was adequate. Image quality was adequate. Contrast extended to the entire biliary tree. The common bile duct was diffusely dilated, acquired. The largest diameter was 10 mm.. Biliary sphincterotomy was made with a braided traction (standard) sphincterotome using ERBE electrocautery. There was no post-sphincterotomy bleeding. The biliary tree was swept with a 12 mm balloon starting at the bifurcation. Nothing was found. Occlusion cholangiogram did not show any filling defects. Impression: - The common bile duct was dilated, acquired. - One plastic stent was placed into the pancreatic duct. - A biliary sphincterotomy was performed. - The biliary tree was swept and nothing was found. Recommendation: - Avoid aspirin and nonsteroidal anti-inflammatory medicines for 5 days. - Return patient to hospital [facility] for ongoing care. - NPO - advance as tolerated to resume previous diet for 12 hours. - Await path results. - Perform a flat plate abdominal x-ray in 5 - 7 days. - Return to GI clinic in 1 week after the abdominal X-ray. - Repeat ERCP based on the biopsy results. Attending Participation: Procedure perform along with Dr. Payne. Daryl Rayo MD Daryl Rayo MD 10/22/2016 6:24:15 PM This report has been signed electronically. Delio PAYNE MD Number of Addenda: 0 Note Initiated On: 10/22/2016 4:35 PM Estimated Blood Loss: Estimated blood loss: none.
[2016-10-22] MEDS ORDERED: LR 1,000 ML IV SCH (18:45)
[2016-10-22] MEDS ORDERED: fentaNYL 100 MCG/2 ML INJECTION (J3010) IV PRN (18:45)
[2016-10-22] MEDS ORDERED: ONDANSETRON 4MG/2ML VIAL (J2405) IV PRN (18:45)
[2016-10-22] MEDS: FLUTICASONE PROP 0.05% NASAL SPRAY 16 GM (FLONASE) SCH (22:23)
[2016-10-22] MEDS: FERROUS GLUCONATE 324 MG TAB PO SCH (22:23)
[2016-10-22] MEDS: MULTIVITAMINS/MINERALS THERAP 1 TAB PO SCH (22:23)
[2016-10-23] MEDS: NS 1,000 ML IV SCH ×2 (01:54→06:27)
[2016-10-23] MEDS: MEROPENEM INJ 1 GM in D5W MINI-BAG PLUS 100 ML IV SCH ×3 (01:54→18:14)
[2016-10-23 02:00] VITALS: BP 128/60
[2016-10-23 06:00] VITALS: BP 120/77
[2016-10-23 06:17] LABS: MEAN CORPUSCULAR HGB CONC 33.5 g/dl (32.0-36.5); MEAN CORPUSCULAR VOLUME 86.5 fl (80.0-96.0); RED CELL DISTRIBUTION WIDTH 12.9 % (11.5-14.5)
[2016-10-23 06:42] LABS: ALBUMIN 2.9 GM/DL (3.2-5.2); ALBUMIN/GLOBULIN RATIO 0.83 (1.00-1.93); ALKALINE PHOSPHATASE 134 U/L (45-117); ALT/SGPT 643 U/L (12-78); ANION GAP 9 MEQ/L (8-16); AST/SGOT 418 U/L (15-37); BILIRUBIN,TOTAL 0.9 MG/DL (0.2-1.0); BLOOD UREA NITROGEN 6 MG/DL (7-18); CALCIUM LEVEL 8.2 MG/DL (8.5-10.1); CARBON DIOXIDE LEVEL 22 MEQ/L (21-32); CHLORIDE LEVEL 113 MEQ/L (98-107); CREATININE FOR GFR 0.72 MG/DL (0.55-1.02); GLOMERULAR FILTRATION RATE > 60.0 (>51); GLUCOSE, FASTING 123 MG/DL (70-105); POTASSIUM SERUM 4.1 MEQ/L (3.5-5.1); SODIUM LEVEL 144 MEQ/L (136-145); TOTAL PROTEIN 6.4 GM/DL (6.4-8.2)
--- NOTE | 2016-10-23 07:28 | REP ---
A series of 3 fluoroscopic views are performed during an ERCP procedure. Fluoroscopic exposure time is 8 minutes and 4 seconds. The fluoroscopic images are performed with last image hold technology. These images require no additional radiation. Signed by Dorian Quintero MD 10/23/2016 07:19 A
[2016-10-23] MEDS: SYMBICORT 80/4.5MCG INHALER 6GM INH SCH ×2 (07:30→19:29)
[2016-10-23] MEDS: MONTELUKAST 10 MG TAB PO SCH (09:00)
[2016-10-23] MEDS: ENOXAPARIN 40 MG/0.4 ML SYRINGE (J1650) SC SCH (09:00)
[2016-10-23] MEDS: PANTOPRAZOLE 40MG INJ (PROTONIX) (C9113) IV SCH (09:00)
[2016-10-23] MEDS: AZELASTINE 137MCG NASAL SPY 30 ML (ASTELIN) SCH (09:00)
[2016-10-23 10:00] VITALS: BP 136/67
[2016-10-23 14:00] VITALS: BP 122/58
--- NOTE | 2016-10-23 15:07 | IPNPDOC ---
Subjective Date Seen The patient was seen on 10/23/16. Subjective Chief Complaint/HPI Pt seen and examined at the bedside this morning. States that she is feeling well today, and denies any abdominal pain. Reports that she has tolerated a clear liquid diet without any issues overnight. Objective Physical Examination General Exam: Positive: Alert, Cooperative, No Acute Distress ENT Exam: Positive: Atraumatic, Mucous membr. moist/pink Neck Exam: Negative: JVD Chest Exam: Positive: Clear to auscultation, Normal air movement Heart Exam: Positive: Rate Normal, Normal S1, Normal S2 Abdomen Exam: Positive: Soft, Negative: Tenderness Extremity Exam: Negative: Tenderness, Swelling Psych Exam: Positive: Oriented x 3 Assessment /Plan Plan/VTE VTE Prophylaxis Ordered?: Yes Plan Mild Dilatation of Intrahepatic Bile Duct on MRCP ?Clot noted on MRCP, possible stone vs mass? s/p ERCP on 10/22/16--CBD was dilated, One plastic stent was placed into the pancreatic duct, Biliary Sphincterotomy was performed, and the Biliary Tree was swept with nothing of note found Blood Cultures unrevealing at this time Cont Meropenem 1gm q8h AST/ALT trending downward, T-Cruz back down to wnl--patient w/o any complaints of N/V, abd pain, jaundice, Diet advance to Regular today We will cont to monitor at this time Abdominal pain, nausea, vomiting 2/[address] scan of the abdomen revealed suspected acute cholecystitis with mild dilated extrahepatic biliary tree. Ultrasound of the gallbladder however revealed no biliary duct dilatation or any cholelithiasis. MRCP revealed mild dilatation of intrahepatic bile ducts and also the common bile duct, a linear filling defect in the mid to distal common bile duct possibly phlebotomy services representative of a clot. ERCP done on 10/22/16 as noted above Lipase level down trending s/p IVF Hydration Abd pain, N/V resolved Diet advance to regular Asthma, stable Continue albuterol when necessary, Symbicort, Singulair GERD, history of Lopez's esophagus Protonix DVT prophylaxis Lovenox subcutaneously Dispo--AST/ALT and T-Cruz downtrending. Patient advanced to regular diet today. Will monitor for another 24 hrs, and likely D/C tomorrow with close follow up with GI as an outpatient. VS, I&O, 24H, Fishbone Vital Signs/I&O Vital Signs Date Time Temp Pulse Resp B/P (MAP) Pulse Ox O2 Delivery O2 Flow Rate FiO2 10/23/16 10:00 98.7 74 18 136/67 (90) 97 Room Air 10/23/16 06:00 2.0 I&O- Last 24 Hours up to 6 AM 10/23/16 06:00 Intake Total 8080 ml Output Total 2800 ml Balance 5280 ml Laboratory Data 24H LABS Laboratory Tests 2 10/23/16 06:06: Anion Gap 9, Glomerular Filtration Rate > 60.0, Blood Urea Nitrogen 6L, Creatinine 0.72, Sodium Level 144, Potassium Level 4.1, Chloride Level 113H, Carbon Dioxide Level 22, Calcium Level 8.2L, Aspartate Amino Transf (AST/SGOT) 418H, Alanine Aminotransferase (ALT/SGPT) 643H, Alkaline Phosphatase 134H, Total Bilirubin 0.9#, Total Protein 6.4, Albumin 2.9L, Albumin/Globulin Ratio 0.83L CBC/BMP Laboratory Tests 10/23/16 06:06 Red Blood Count 4.12, Mean Corpuscular Volume 86.5, Mean Corpuscular Hemoglobin 29.0, Mean Corpuscular Hemoglobin Concent 33.5, Red Cell Distribution Width 12.9 , Calcium Level 8.2 L, Aspartate Amino Transf (AST/SGOT) 418 H, Alanine Aminotransferase (ALT/SGPT) 643 H, Alkaline Phosphatase 134 H, Total Bilirubin 0.9 #, Total Protein 6.4, Albumin 2.9 L Microbiology Microbiology 10/21/16 Blood Culture - Preliminary, Resulted No growth after 24 hours . All specim... JULIAN PERES MD Oct 23, 2016 15:07
[2016-10-23] MEDS: FERROUS GLUCONATE 324 MG TAB PO SCH (20:22)
[2016-10-23] MEDS: FLUTICASONE PROP 0.05% NASAL SPRAY 16 GM (FLONASE) SCH (20:23)
[2016-10-23] MEDS: MULTIVITAMINS/MINERALS THERAP 1 TAB PO SCH (20:24)
[2016-10-23 22:00] VITALS: BP 158/77
[2016-10-24] MEDS: MEROPENEM INJ 1 GM in D5W MINI-BAG PLUS 100 ML IV SCH ×2 (01:57→09:00)
[2016-10-24 01:59] VITALS: BP 132/63
[2016-10-24 06:00] VITALS: BP 133/76
[2016-10-24] MEDS: SYMBICORT 80/4.5MCG INHALER 6GM INH SCH (07:33)
[2016-10-24 08:10] LABS: MEAN CORPUSCULAR HEMOGLOBIN 28.9 pg (27.0-33.0); MEAN CORPUSCULAR HGB CONC 33.7 g/dl (32.0-36.5); MEAN CORPUSCULAR VOLUME 85.8 fl (80.0-96.0); RED CELL DISTRIBUTION WIDTH 13.6 % (11.5-14.5); WHITE BLOOD COUNT 9.2 K/mm3 (4.0-10.0)
[2016-10-24 08:16] LABS: ALBUMIN/GLOBULIN RATIO 0.81 (1.00-1.93); ALKALINE PHOSPHATASE 129 U/L (45-117); ALT/SGPT 460 U/L (12-78); ANION GAP 7 MEQ/L (8-16); AST/SGOT 139 U/L (15-37); BILIRUBIN,TOTAL 0.8 MG/DL (0.2-1.0); BLOOD UREA NITROGEN 6 MG/DL (7-18); CALCIUM LEVEL 8.2 MG/DL (8.5-10.1); CARBON DIOXIDE LEVEL 25 MEQ/L (21-32); CHLORIDE LEVEL 110 MEQ/L (98-107); CREATININE FOR GFR 0.47 MG/DL (0.55-1.02); GLOMERULAR FILTRATION RATE > 60.0 (>51); GLUCOSE, FASTING 100 MG/DL (70-105); POTASSIUM SERUM 3.4 MEQ/L (3.5-5.1); SODIUM LEVEL 142 MEQ/L (136-145); TOTAL PROTEIN 6.7 GM/DL (6.4-8.2)
[2016-10-24] MEDS: ENOXAPARIN 40 MG/0.4 ML SYRINGE (J1650) SC SCH (08:59)
[2016-10-24] MEDS: MONTELUKAST 10 MG TAB PO SCH (09:00)
[2016-10-24] MEDS: PANTOPRAZOLE 40MG INJ (PROTONIX) (C9113) IV SCH (09:00)
[2016-10-24] MEDS: AZELASTINE 137MCG NASAL SPY 30 ML (ASTELIN) SCH (09:00)
[2016-10-24] MEDS ORDERED: POTASSIUM CHLORIDE 10 MEQ SR TABLET PO ONE (09:00)
[2016-10-24] MEDS ORDERED: DOXY-278 PO (11:28)
--- NOTE | 2016-10-24 12:13 | IPNPDOC ---
Date Seen The patient was seen on 10/24/16. at 9:15 AM Progress Note Interval history: Patient underwent ERCP with biliary sphincterotomy, balloon sweep and PD stent placement on 10/22/2016. Tolerated procedure well and her abdominal pain is resolved and she is tolerating diet well. Complains of arm redness where she had IV line but no fever documented. Exam: Vitals: reviewed GENERAL: Alert and oriented x 3, not in distress. HEENT: NO pallor, Mild icterus. Normal oropharynx, NO cervical lymph nodes. CHEST: symmetric with bilateral clear air entry, CVS: S1, S2 heard, normal, no murmurs . ABDOMEN: Obese, no surgical scars, epigastric tenderness with no rigidity or guarding, no palpable masses, normal bowel sounds heard. EXTREMITIES: no pedal edema, pulses palpable. SECURITY SYSTEM ENGINEER: no focal motor or sensory deficits. Moves all extremities SKIN: no rash. Labs: reviewed. Imaging: reviewed. MRCP reviewed. Impression: - Acute pancreatitis with abnormal LFTs - and GB sludge on USG abdomen and possible blood clot on MRCP with prominent CBD and PD -- underwent ERCP with biliary sphincterotomy and balloon sweep and PD stent placement. No obstructive stones -- so did CBD brushings to r/o distal CBD stricter. ( less likely obstruction from diverticulum/ distorted anatomy from diverticulum ( Salazar papilla located next to duodenal diverticulum. - Abnormal LFTs -- likely from biliary obstruction. No prior labs in [facility] about hepatitis work up. Recommendations: -- Diet as tolerated. -- Follow up CBD brushing results. -- Repeat LFTs and obtain hepatitis work up ( Hepatitis A igG, Hepatitis B sAg, HbsAb, HCV). -- Complete the short course of Abx for total of 5 days ( can be discharged on PO antibiotics). -- upon discharge please give appointment with Dr. Baker ( primary platform material handling supervisor) in 1 week. ( clinic # [phone]). -- Will obtain Abdominal Xray in 5- 7 days to check if the Pancreatic stent has passes. -- Further work up based on the CBD brushing results. -- Needs elective evaluation by surgery for cholecystectomy - to be sent from GI clinic. Plan of care discussed with patient and her and all their questions answered. Recommendations communicated with primary team. DUKE GEORGES MD Oct 24, 2016 12:13
[2016-10-24 14:00] VITALS: BP 140/67
--- NOTE | 2016-10-24 18:53 | DS.PDOC ---
Discharge Summary General Date of Admission Oct 21, 2016 at 08:13 Date of Discharge 10/24/16 Specialist/Consultants Involve: DARYL GEORGES MD Discharge Summary PROCEDURES PERFORMED DURING STAY: ERCP ADMITTING DIAGNOSES: 1. . Acute pancreatitis 2. . Elevated liver function tests DISCHARGE DIAGNOSES: 1. . Acute pancreatitis 2. . Elevated liver function tests COMPLICATIONS/CHIEF COMPLAINT: Acute Cholecystitis. HISTORY OF PRESENT ILLNESS: . 60-year-old female with past medical history of asthma, obesity, Lopez's esophagus status post ablation in the past, and history of sessile polyp on colonoscopy in 2016 presented to the ER with a chief complaint of nausea, vomiting, and abdominal pain over the last 24 hours. The patient states that she had a surveillance EGD and Colonoscopy with Dr. Maria yesterday and notes that there were no acute findings noted. Subsequent patient states that she has developed abdominal pain in the supraumbilical/epigastric area with associated nausea and vomiting. She denies a similar occurrence in the past. She denies recent travel, or sick contacts. She denied any episodes of diarrhea. There were no associated alleviating or aggravating factors. The patient presents to the ER for further evaluation and management of the same. In the ER, laboratory work was suggestive of pancreatitis with mild elevation of liver function tests. A CT scan of the abdomen revealed suspected acute cholecystitis with mild dilated extrahepatic biliary tree. An ultrasound of the gallbladder however revealed no biliary duct dilatation or any cholelithiasis. An MRCP was ordered and this revealed mild dilatation of intrahepatic bile ducts and also the common bile duct, a linear filling defect in the mid to distal common bile duct possibly claim representative of a clot. The patient was subsequently admitted to the hospitalist service, and a consult was placed to gastroenterology for further evaluation and management. During hospitalization, the patient was treated with IV fluid hydration and empiric antibiotic therapy. However, the patient's LFTs were noted to be significantly elevated following the day of admission. The patient was subsequently taken for an ERCP with gastroenterology. The patient had a biliary sphincterotomy and balloon sweep and pancreatic duct stent placement. There were no obstructive stones found, however the patient did have common bile duct brushings done for further evaluation. The patient's abnormal LFTs were likely secondary to biliary obstruction. The patient's liver function tests subsequently improved over the ensuing 2 days. The patient's diet was advanced and she denied any acute complaints of nausea, vomiting, or any abdominal pain. At this time, the patient states that she is feeling much better and she is eager to return home. The patient will be discharged on a 5 day course of antibiotics. In addition, the patient has been advised to follow-up with the gastroenterology clinic for further evaluation and management. I've also asked the patient to follow-up with her primary care physician within one week. She has been consulted to return back to the ER for any other acute emergencies DISCHARGE MEDICATIONS: Please see below. ALLERGIES: Please see below. PHYSICAL EXAMINATION ON DISCHARGE: VITAL SIGNS: Please see below. General Exam: Positive: Alert, Cooperative, No Acute Distress ENT Exam: Positive: Atraumatic, Mucous membr. moist/pink Neck Exam: Negative: JVD Chest Exam: Positive: Clear to auscultation, Normal air movement Heart Exam: Positive: Rate Normal, Normal S1, Normal S2 Abdomen Exam: Positive: Soft, Negative: Tenderness Extremity Exam: Negative: Tenderness, Swelling Psych Exam: Positive: Oriented x 3 LABORATORY DATA: Please see below. IMAGING: Procedure: ERCP Indications: Elevated liver enzymes, Acute pancreatitis suspected due to gallstone Providers: Daryl Georges MD, Delio PAYNE MD Referring MD: Velma Nevarez DO Requesting Provider: Medicines: Monitored Anesthesia Care Complications: No immediate complications. Procedure: Pre-Anesthesia Assessment: - Prior to the procedure, a History and Physical was performed, and patient medications and allergies were reviewed. The patient is competent. The risks and benefits of the procedure and the sedation options and risks were discussed with the patient. All questions were answered and informed consent was obtained. Patient identification and proposed procedure were verified by the physician, the nurse and the motion picture scene builder in the procedure room. Mental Status Examination: alert and oriented. Airway Examination: normal oropharyngeal airway and neck mobility. Respiratory Examination: clear to auscultation. CV Examination: normal. Prophylactic Antibiotics: The patient does not require prophylactic antibiotics. Prior Anticoagulants: The patient has taken no previous anticoagulant or antiplatelet agents. ASA Grade Assessment: III - A patient with severe systemic disease. After reviewing the risks and benefits, the patient was deemed in satisfactory condition to undergo the procedure. The anesthesia plan was to use general anesthesia. Immediately prior to administration of medications, the patient was re-assessed for adequacy to receive sedatives. The heart rate, respiratory rate, oxygen saturations, blood pressure, adequacy of pulmonary ventilation, and response to care were monitored throughout the procedure. The physical status of the patient was re-assessed after the procedure. The Duodenoscope was introduced through the mouth, and advanced to the duodenum and used to inject contrast into the bile, dorsal and ventral pancreatic ducts. The ERCP was accomplished without difficulty. The patient tolerated the procedure well. Findings: The cement mason apprentice film was normal. The esophagus was successfully intubated under direct vision. The scope was advanced to a normal major papilla in the descending duodenum without detailed examination of the pharynx, larynx and associated structures, and upper GI tract. The upper GI tract was grossly normal except duodenal diverticulum near major papilla. 0.035 inch x 260 cm straight Hydra Jagwire was passed into the ventral pancreatic duct. One 5 Fr by 3 cm plastic stent with a full external pigtail and no internal flaps was placed into the ventral pancreatic duct. The stent was in good position. Later the bile duct was deeply cannulated with the short-nosed traction sphincterotome. Contrast was injected. I personally interpreted the bile duct and pancreatic duct images. Ductal flow of contrast was adequate. Image quality was adequate. Contrast extended to the entire biliary tree. The common bile duct was diffusely dilated, acquired. The largest diameter was 10 mm.. Biliary sphincterotomy was made with a braided traction (standard) sphincterotome using ERBE electrocautery. There was no post-sphincterotomy bleeding. The biliary tree was swept with a 12 mm balloon starting at the bifurcation. Nothing was found. Occlusion cholangiogram did not show any filling defects. Impression: - The common bile duct was dilated, acquired. - One plastic stent was placed into the pancreatic duct. - A biliary sphincterotomy was performed. - The biliary tree was swept and nothing was found. Recommendation: - Avoid aspirin and nonsteroidal anti-inflammatory medicines for 5 days. - Return patient to hospital [facility] for ongoing care. - NPO - advance as tolerated to resume previous diet for 12 hours. - Await path results. - Perform a flat plate abdominal x-ray in 5 - 7 days. - Return to GI clinic in 1 week after the abdominal X-ray. - Repeat ERCP based on the biopsy results. MRCP EXAM: MRCP exam is accomplished utilizing multiple heavily T2-weighted sequences in the axial and coronal planes with MIP reconstruction images performed. The gallbladder is moderately distended with no definite filling defect. There does appear to be gallbladder wall edema. The central intrahepatic bile ducts are slightly dilated. There is slight dilatation of the common bile duct up to 8 mm. There appears to be focal narrowing in the distal common bile duct. There also appears to be a somewhat linear filling defect in the mid and distal common bile duct . This may represent a clot. The pancreatic duct is mildly dilated up to 5 mm. The liver and pancreatic signal is unremarkable. There are small cysts in the left kidney. No free fluid is seen in the visualized abdomen. IMPRESSION: Moderately distended gallbladder with diffuse gallbladder wall edema. Very mild dilatation of intrahepatic bile ducts centrally and also of the common bile duct. There appears to be focal narrowing of the distal common bile duct. A linear filling defect in the mid to distal common bile duct may represent a clot. There is mild dilatation of the pancreatic duct. Abdominal upper quadrant ultrasound: There is a negative Sanchez's sign to transducer pressure. There is biliary sludge in the gallbladder. There is no evidence of cholelithiasis. There is no gallbladder wall thickening or pericholecystic fluid. There is no intrahepatic or extrahepatic biliary duct dilatation, the common duct measures 4.5 mm in diameter. The liver is homogeneous but echogenic compatible with hepato steatosis. The pancreas is obscured by bowel gas. There is no right renal calculus, mass, cyst or hydronephrosis. The right kidney is normal size measuring 13.0 cm craniocaudad length. Impression: No biliary duct dilatation. No cholelithiasis. There is biliary sludge in the gallbladder. Hepato steatosis. Pancreas obscured by bowel gas. CLINICAL HISTORY: Abdominal pain. TECHNIQUE: Multiple axial, sagittal and coronal CT images were obtained through the abdomen and pelvis after administration of intravenous contrast material. COMMENTS: Small sliding hiatal hernia. Thickening of the gastroesophageal junction. The liver is moderately enlarged with decreased attenuation without mass or defect. There is mild extrahepatic biliary ductal dilatation. The spleen is normal. The gallbladder is distended. Diffuse thickening of the wall of the gallbladder. The pancreas is of normal contour and attenuation characteristics. There is no evidence of adrenal mass. Minimal peripancreatic fat stranding. Both kidneys demonstrate prompt and equal nephrograms. The kidneys are normal in size, shape and configuration. There is no evidence of renal or ureteral mass. No renal or ureteral calculi are identified. There is no hydroureter or hydronephrosis. No evidence for appendicitis. There is no bowel wall thickening. No evidence for small or large bowel obstruction. There is no evidence of abdominal ascites or lymphadenopathy. There is no evidence of intrinsic or extrinsic bladder mass. Thickened bladder. There is no pelvic ascites or lymphadenopathy. Uncomplicated diverticulosis. Images of the lung bases show no evidence of pleural or parenchymal mass. There are no pleural effusions. The bony structures are free of lytic or blastic lesions. IMPRESSION: Hepatomegaly with fatty infiltration. Suspected acute cholecystitis. Mildly dilated extrahepatic biliary tree. Minimal pancreatitis. Small sliding hiatal hernia. Thickened gastroesophageal junction. PROGNOSIS: Medically stable ACTIVITY: As tolerated. DIET: . 2 g low sodium diet DISCHARGE PLAN: DISPOSITION: Home, Self-Care. DISCHARGE INSTRUCTIONS: 1. . Follow-up with primary care physician within one week 2. . Follow up with gastroenterology clinic within one week 3. . Return to the ER for any acute emergencies DISCHARGE CONDITION: Stable. TIME SPENT ON DISCHARGE: Greater than 30 minutes. Vital Signs/I&Os Vital Signs Date Time Temp Pulse Resp B/P (MAP) Pulse Ox O2 Delivery O2 Flow Rate FiO2 10/24/16 14:00 99.2 92 14 140/67 (91) 95 Room Air 10/23/16 09:22 1.0 I&O- Last 24 Hours up to 6 AM 10/24/16 06:00 Intake Total 3565 ml Output Total 2200 ml Balance 1365 ml Laboratory Data Labs 24H Laboratory Tests 2 10/24/16 07:27: Anion Gap 7L, Glomerular Filtration Rate > 60.0, Blood Urea Nitrogen 6L, Creatinine 0.47L, Sodium Level 142, Potassium Level 3.4L, Chloride Level 110H, Carbon Dioxide Level 25, Calcium Level 8.2L, Aspartate Amino Transf (AST/SGOT) 139H, Alanine Aminotransferase (ALT/SGPT) 460H, Alkaline Phosphatase 129H, Total Bilirubin 0.8, Total Protein 6.7, Albumin 3.0L, Albumin/Globulin Ratio 0.81L CBC/BMP Laboratory Tests 10/24/16 07:27 Red Blood Count 4.18, Mean Corpuscular Volume 85.8, Mean Corpuscular Hemoglobin 28.9, Mean Corpuscular Hemoglobin Concent 33.7, Red Cell Distribution Width 13.6 , Calcium Level 8.2 L, Aspartate Amino Transf (AST/SGOT) 139 H, Alanine Aminotransferase (ALT/SGPT) 460 H, Alkaline Phosphatase 129 H, Total Bilirubin 0.8, Total Protein 6.7, Albumin 3.0 L Microbiology Microbiology 10/21/16 Blood Culture - Preliminary, Resulted No Growth after 72 hours. All specime... Discharge Medications Scheduled (Flonase Allergy Relief) 50 Mcg/Act Spr, 2 SPRAYS NA QHS, (Reported) Azelastine Hydrochloride (Azelastine HCl) 137 Mcg/[place] Spr, 2 SPRAY NA DAILY, ( Reported) Budesonide/Formoterol (Symbicort 80-4.5 Mcg/Act) 60 Puff/Inhaler Aers, 1 PUFF PO BID, (Reported) Doxycycline Hyclate (Doxycycline) 100 Mg Cap, 100 MG PO Q12H Ferrous Gluconate (Ferrous Gluconate) 324 Mg Tab, 324 MG PO QPM, (Reported) Montelukast Sodium (Montelukast Sodium) 10 Mg Tab, 10 MG PO DAILY, (Reported) Multivitamins *[facility] STOCKED* (Thera M Plus *[facility] STOCKED*) 1 Tab Tab, 1 TAB PO QPM , (Reported) Omeprazole (Omeprazole) 40 Mg Cap, 40 MG PO QPM, (Reported) Scheduled PRN Acetaminophen (Acetaminophen Extra Stren) 500 Mg Tab, 1,000 MG PO Q6HP PRN for PAIN, (Reported) Albuterol Sulfate (Ventolin Hfa) 200 Puff/8 Gm Aers, 2 PUFFS PO QID PRN for SHORTNESS OF BREATH, (Reported) Baclofen (Baclofen) 10 Mg Tab, 10 MG PO DAILY PRN for MUSCLE SPASMS, (Reported) Polyethylene Glycol (Miralax) 1 Pow Pow, 17 GM PO DAILY PRN for CONSTIPATION, ( Reported) Allergies Coded Allergies: Penicillins (Verified Allergy, Intermediate, RASH, 10/24/16) Meropenem (Verified Allergy, Mild, RASH ON BOTH ARMS 10/24/16, 10/24/16) JULIAN PERES MD Oct 24, 2016 18:53
[2017-01-12] MEDS ORDERED: ADV250INH INH (10:22)
== END 2016-10-24 14:35 | disposition home or self-care (01) ==
LOC: M ED 04:07 → M ED INP 08:13 → M MS5PR 10:58
PROVIDERS: ADMIT Internal Medicine; ATTEND Internal Medicine
PROC: 0F7D8DZ Dilation of Pancreatic Duct with Intraluminal Device, Via Natural or Artificial Opening Endoscopic (ICD-10-PCS; principal; 2016-10-22 14:00)
DX: K81.0 Acute cholecystitis (principal); K85.90 Acute pancreatitis without necrosis or infection, unspecified; K83.1 Obstruction of bile duct; K22.70 Barrett's esophagus without dysplasia; E66.9 Obesity, unspecified; Z68.34 Body mass index [BMI] 34.0-34.9, adult; J45.909 Unspecified asthma, uncomplicated; K44.9 Diaphragmatic hernia without obstruction or gangrene; Z79.899 Other long term (current) drug therapy; Z88.0 Allergy status to penicillin; Z88.8 Allergy status to other drugs, medicaments and biological substances

== ENCOUNTER → 2016-11-23 | Outpatient (CLI) | payer BC ==
[~2016-11-23] MED LIST changes: +ADV250INH INH; +DOXY-278 PO; +MIRA3350 PO; +VITMTA PO
[2016-11-23 16:15] LABS: ALBUMIN/GLOBULIN RATIO 1.38 (1.00-1.93); BILIRUBIN,DIRECT 0.1 MG/DL (0.0-0.2); BILIRUBIN,TOTAL 0.4 MG/DL (0.2-1.0); TOTAL PROTEIN 6.9 GM/DL (6.4-8.2)
== END ==
LOC: M LAB 14:38
PROVIDERS: ATTEND Internal Medicine Gastroenterology
DX: K85.90 Acute pancreatitis without necrosis or infection, unspecified (principal)

== ENCOUNTER → 2016-12-21 | Outpatient (REF) | payer BC | LOC: M SFHCWAGY 13:45 | PROVIDERS: ATTEND Nurse Practitioner Family | DX: Z12.4 Encounter for screening for malignant neoplasm of cervix (principal) ==

== ENCOUNTER → 2016-12-21 | Outpatient (CLI) | payer BC ==
--- NOTE | 2016-12-21 11:23 | REPMRS ---
Patient History The patient states she had a clinical breast exam in 12/2016. Patient is postmenopausal. Family history of colorectal cancer in maternal grandmother at age 70. Took hormonal contraceptives for 7 years. Digital Woman Screen Mammo: December 21, 2016 - Exam #: [id number] Bilateral CC and MLO view(s) were taken. Technologist: Ruby Vuong, Technologist Prior study comparison: September 24, 2015, digital woman screen mammo performed at [facility]. November 04, 2013, bilateral bilat screen digital mammo, performed at [facility] ([facility]). July 30, 2012, bilateral bilat screen digital mammo, performed at [facility] ([facility]). FINDINGS: There are scattered fibroglandular densities. There has been no change in the appearance of the mammogram from the prior studies. There is a mild amount of scattered fibroglandular density which is fairly symmetric. There is no interval development of dominant mass, architectural distortion, or clustered microcalcification suggestive of malignancy. ASSESSMENT: BI-RADS/ACR category 1 mammogram. Negative. Recommendation Routine screening mammogram in 1 year (for women over age 40). This mammogram was interpreted with the aid of an FDA-approved computer-aided dectection system. Electronically Signed By: Antonio Darnell MD 12/21/16 1129
== END ==
LOC: M WHC 09:25
PROVIDERS: ATTEND Nurse Practitioner Family
DX: Z12.31 Encounter for screening mammogram for malignant neoplasm of breast (principal)

== ENCOUNTER → 2017-01-18 | Outpatient (CLI) | payer BC ==
--- NOTE | 2017-01-19 19:58 | ECGEPIP ---
Stationary ECG Study [facility] Test Date: 2017-01-18 Pat Name: MISSY MATHEW Department: Room: - Gender: F Rubber Mixer: ALEX : 1955 Requested By: Kam Mayo Order Number: [id number] Reading MD: Abdias Russell Measurements Intervals [place] Rate: 82 P: 16 VA: 135 QRS: 12 QRSD: 82 T: 30 QT: 350 QTc: 409 Interpretive Statements SINUS RHYTHM LOW QRS VOLTAGE IN PRECORDIAL LEADS NO CHANGE SINCE 10/21/16 Electronically Signed On 01-19-2017 19:58:33 EST by Abdias Russell
== END ==
LOC: M EKG 11:59
PROVIDERS: ATTEND Anesthesiology
DX: K57.92 Diverticulitis of intestine, part unspecified, without perforation or abscess without bleeding (principal)

== ENCOUNTER 2017-01-20 05:56 | Day surgery (SDC) | payer BC ==
[~2017-01-20] VITALS: Ht 157.5 cm; Wt 86.6 kg
[2017-01-20] MEDS ORDERED: LR 1,000 ML IV SCH ×2 (06:15→09:45)
[2017-01-20] MEDS ORDERED: SCOPOLAMINE 1.5 MG TRANSDERMAL TOP ONE (07:15)
[2017-01-20] MEDS ORDERED: BUPIVACAINE HCL 0.25% 30 ML VIAL As Ordered ONE (07:18)
[2017-01-20] MEDS ORDERED: fentaNYL 250 MCG/5 ML INJECTION (J3010) As Ordered ONE (07:43)
[2017-01-20] MEDS ORDERED: MIDAZOLAM INJ 2 MG/2 ML VIAL (J2250) As Ordered ONE (07:43)
[2017-01-20] MEDS ORDERED: LIDOCAINE 2% JELLY 30 ML As Ordered ONE (07:43)
[2017-01-20] MEDS ORDERED: ONDANSETRON 4MG/2ML VIAL (J2405) As Ordered ONE (07:44)
[2017-01-20] MEDS ORDERED: dexameTHASONE 4 MG/ML 1ML VIAL (J1100) As Ordered ONE (07:44)
[2017-01-20] MEDS ORDERED: KETOROLAC 60 MG/2 ML VIAL (J1885) As Ordered ONE (07:44)
[2017-01-20] MEDS ORDERED: PROPOFOL 200 MG/20 ML VIAL As Ordered ONE (07:47)
[2017-01-20] MEDS ORDERED: NEOSTIGMINE 10 MG/10 ML VIAL (J2710) As Ordered ONE (07:48)
[2017-01-20] MEDS ORDERED: LIDOCAINE 2% INJ 100 MG/5 ML SDV (FOR ANES.) As Ordered ONE (07:48)
[2017-01-20] MEDS ORDERED: ROCURONIUM BROMIDE 50 MG/5 ML VIAL/SYRINGE As Ordered ONE ×2 (07:48→08:24)
[2017-01-20] MEDS ORDERED: GLYCOPYRROLATE INJ 0.2 MG/ML 2 ML VIAL As Ordered ONE (07:48)
[2017-01-20] MEDS ORDERED: METOCLOPRAMIDE INJ 10MG/2ML VIAL (J2765) As Ordered ONE (07:49)
[2017-01-20] MEDS ORDERED: DESFLURANE 240 ML INHALANT As Ordered ONE (07:52)
[2017-01-20] MEDS ORDERED: SEVOFLURANE INHAL SOLN 250 ML BTL As Ordered ONE (07:54)
[2017-01-20] MEDS ORDERED: fentaNYL 100 MCG/2 ML INJECTION (J3010) As Ordered ONE (08:19)
[2017-01-20] MEDS ORDERED: IBUPROFEN 400 MG TAB PO PRN (09:45)
[2017-01-20] MEDS ORDERED: ONDANSETRON 4MG/2ML VIAL (J2405) IV PRN (09:45)
[2017-01-20] MEDS ORDERED: fentaNYL 100 MCG/2 ML INJECTION (J3010) IV PRN (09:45)
[2017-01-20] MEDS ORDERED: ACETAMINOPHEN TAB 650MG DOSE (2X325MG) PO PRN (09:45)
[2017-01-20] MEDS ORDERED: PERCOCET 5MG/325MG TAB PO PRN (09:45)
[2017-01-20] MEDS ORDERED: NORCO, ANEXSIA 5/325MG TABLET (HYDROcodone/ACETAMINOPHEN) PO PRN (09:45)
[2017-01-20 11:46] VITALS: BP 137/66
--- NOTE | 2017-01-21 11:12 | RO ---
DATE OF PROCEDURE: 01/20/2017 PREOPERATIVE DIAGNOSIS: Gallstones with biliary pancreatitis. POSTOPERATIVE DIAGNOSIS: Gallstones with biliary pancreatitis. PROCEDURE PERFORMED: Laparoscopic cholecystectomy. SURGEON: Oscar Mercer MD PREPARATION OPERATOR: ANESTHESIA: General. INDICATIONS FOR THE PROCEDURE: Patient is a 61-year-old woman who had presented to the hospital approximately 2 months ago with pancreatitis. She was found to have biliary sludge on ultrasound. She underwent an ERCP with stenting. She is now for a laparoscopic cholecystectomy. OPERATIVE PROCEDURE: The patient was placed under general endotracheal anesthesia. The patient's abdomen was prepped and draped in a sterile fashion. 0.25% Marcaine was infiltrated at each of the trocar sites. A short supraumbilical midline incision was made. This was deepened through the fascia at the midline and the peritoneum was opened bluntly. A Jaciel cannula was inserted. The abdomen was insufflated with carbon dioxide and the laparoscope was placed. Initial examination revealed some adhesions of the omentum to the undersurface of the liver just lateral to the gallbladder. The gallbladder appeared slightly thick-walled but not inflamed. The liver appeared normal. The bowel was largely covered by omental fat. The patient was tilted to a reverse Trendelenburg position and rolled slightly to the left. Two 5 mm trocars were placed in the right upper quadrant. A third 5 mm trocar was placed in the left upper quadrant. Graspers were inserted and the gallbladder was grasped and elevated. It was necessary to divide the adhesions lateral to the gallbladder to achieve adequate exposure. Dissection then proceeded at the gallbladder neck. The peritoneum was opened with the hook cautery and the pericholecystic fibrofatty tissues were dissected to expose the cystic duct and the cholecystic artery, which was directly adjacent to the cystic duct. The duct was freed circumferentially and then doubly clipped with hemoclips and divided. The artery was then doubly clipped and divided. The gallbladder was then dissected free from the gallbladder bed using the spatula cautery. The gallbladder was not perforated in the course of dissection. The gallbladder was placed in an Endopouch. The right upper quadrant was irrigated and inspected. There was no bleeding and no bile leak was identified. The patient was returned to a flat position. The abdomen was deflated and the trocars were all removed. The gallbladder was recovered through the Jaciel site. There were not any distinct stones palpable within the gallbladder. This was sent for permanent pathology. The fascia at the Jaciel site was closed with interrupted simple sutures of #2-0 Vicryl. The skin incisions were all closed with buried #5-0 Vicryl and Steri-Strips. Light dressings were applied. The patient was awakened in the operating room, extubated and moved to the recovery room in stable condition.
== END 2017-01-20 12:20 | disposition home or self-care (01) ==
LOC: M SDC 05:56
PROVIDERS: ATTEND Surgery
DX: K81.2 Acute cholecystitis with chronic cholecystitis (principal); J45.909 Unspecified asthma, uncomplicated; K57.32 Diverticulitis of large intestine without perforation or abscess without bleeding; K21.9 Gastro-esophageal reflux disease without esophagitis; K22.70 Barrett's esophagus without dysplasia; D64.9 Anemia, unspecified; Z79.51 Long term (current) use of inhaled steroids; Z79.899 Other long term (current) drug therapy; Z88.0 Allergy status to penicillin; Z88.8 Allergy status to other drugs, medicaments and biological substances; G47.30 Sleep apnea, unspecified; Z87.891 Personal history of nicotine dependence
CPT/HCPCS: 47562; 88304; J1100; J1885; J2250; J2405; J2710; J2765; J3010

== ENCOUNTER → 2017-06-30 | Outpatient (REF) | payer BC ==
[2017-06-30 20:17] LABS: FERRITIN 84 NG/ML (8-252); IRON (FE) 53 UG/DL (50-170); PERCENT SATURATION 19.6 % (13.2-45.0); TOTAL IRON BINDING CAPACITY 270 UG/DL (250-450)
[2017-07-03 11:09] LABS: VITAMIN B12 LEVEL 1127 PG/ML (247-911)
== END ==
LOC: M LAB REF 16:22
DX: D50.9 Iron deficiency anemia, unspecified (principal)
CPT/HCPCS: 83550

== ENCOUNTER → 2018-03-29 | Outpatient (CLI) | payer BC ==
[~2018-03-29] MED LIST changes: -DOXY-278 PO; +DOXY-350 PO
--- NOTE | 2018-03-29 12:43 | REPMRS ---
Patient History The patient states she had a clinical breast exam in 03/2018. Patient is postmenopausal. Family history of colorectal cancer at age 70 in maternal grandmother, ovarian cancer at age 50 in sister. Took hormonal contraceptives for 7 years. Digital Woman Screen Mammo: March 29, 2018 - Exam #: [id number] Bilateral CC and MLO view(s) were taken. Technologist: Ruby Vuong, Technologist Prior study comparison: December 21, 2016, digital woman screen mammo performed at [facility]. September 24, 2015, digital woman screen mammo performed at [facility]. November 04, 2013, bilateral bilat screen digital mammo, performed at [facility] ([facility]). FINDINGS: There are scattered fibroglandular densities. There is stable sized partially calcified benign fibroadenoma on the right. There are stable nodular opacities bilaterally.There is a moderate amount of residual fibroglandular tissue which is fairly symmetric. There is no interval development of dominant mass, architectural distortion, or clustered microcalcification typical of malignancy. There has been no change in the appearance of the ma mmogram from the prior studies. 3-D tomosynthesis shows no additional findings. Assessment: BI-RADS/ACR category 2 mammogram. Benign finding(s). Recommendation Routine screening mammogram of both breasts in 1 year (for women over age 40). This patient's Lifetime Breast Cancer RIsk is estimated at 8.3 %. This mammogram was interpreted with the aid of an FDA-approved computer-aided dectection system. Electronically Signed By: Antonio Darnell MD 03/29/18 1643
== END ==
LOC: M WHC 09:34
PROVIDERS: ATTEND Nurse Practitioner Family
DX: Z12.31 Encounter for screening mammogram for malignant neoplasm of breast (principal); Z80.0 Family history of malignant neoplasm of digestive organs; Z80.41 Family history of malignant neoplasm of ovary

== ENCOUNTER → 2018-03-29 | Outpatient (REF) | payer BC ==
[2018-03-31 15:16] LABS: HPV HYBRID CAPTURE II Negative (Negative)
== END ==
LOC: M SFHCWAGY 10:51
PROVIDERS: ATTEND Nurse Practitioner Family
DX: Z12.4 Encounter for screening for malignant neoplasm of cervix (principal)

== ENCOUNTER → 2018-06-19 | Outpatient (REF) | payer BC ==
[2018-06-19 13:19] LABS: PERCENT SATURATION 17.8 % (13.2-45.0)
== END ==
LOC: M LAB REF 12:19
PROVIDERS: ATTEND Internal Medicine
DX: D50.9 Iron deficiency anemia, unspecified (principal)

== ENCOUNTER → 2018-10-29 | Outpatient (CLI) | payer BC ==
--- NOTE | 2018-10-29 14:37 | REP ---
REASON: Cough. PRIORS: None. FINDINGS: The superior mediastinal structures are midline. The cardiac silhouette is unremarkable in size, shape, and position. The diaphragmatic surfaces of the lungs are regular, and the costophrenic angles are clear. The pulmonary kc are clear. The imaged osseous structures are intact. IMPRESSION: There is no acute cardiopulmonary disease. Electronically Signed by Rancho Pickett DO 10/29/2018 04:38 P
== END ==
LOC: M ADAMS 10:25
PROVIDERS: ATTEND Physician Assistant
DX: R05 Cough (principal); R50.9 Fever, unspecified

== ENCOUNTER → 2018-10-29 | Outpatient (CLI) | payer BC ==
[2018-10-29 12:26] LABS: BASO # 0.1 10^3/uL (0.0-0.2); BASO % 0.7 % (0.0-1.0); EOS # 0.1 10^3/uL (0.0-0.50); EOS % 1.1 % (0.0-3.0); HEMATOCRIT 42.1 % (36.0-47.0); HEMOGLOBIN 13.8 g/dl (12.0-15.5); LYMPH % 27.6 % (24.0-44.0); MEAN CORPUSCULAR HEMOGLOBIN 28.8 pg (27.0-33.0); MEAN CORPUSCULAR HGB CONC 32.8 g/dl (32.0-36.5); MEAN CORPUSCULAR VOLUME 87.7 fl (80.0-96.0); MONO # 0.5 10^3/uL (0.0-0.8); MONO % 7.3 % (0.0-5.0); NEUTROPHILS # 4.6 10^3/uL (1.8-7.7); NEUTROPHILS % 62.8 % (36.0-66.0); PLATELET COUNT, AUTOMATED 280 10^3/uL (150-450); WHITE BLOOD COUNT 7.3 10^3/uL (4.0-10.0)
[2018-10-29 12:43] LABS: ALT/SGPT 27 U/L (12-78); AMYLASE 49 U/L (25-115); BILIRUBIN,TOTAL 0.3 MG/DL (0.2-1.0); BLOOD UREA NITROGEN 9 MG/DL (7-18); C REACTIVE PROTEIN QUANTITATIV 1.64 MG/DL (0.00-0.30); CALCIUM LEVEL 10.1 MG/DL (8.8-10.2); CARBON DIOXIDE LEVEL 29 MEQ/L (21-32); CHLORIDE LEVEL 107 MEQ/L (98-107); CREATININE FOR GFR 0.66 MG/DL (0.55-1.30); GLOMERULAR FILTRATION RATE > 60.0 (>45); GLUCOSE, FASTING 98 MG/DL (70-100); IRON (FE) 52 UG/DL (50-170); LIPASE 134 U/L (73-393); PERCENT SATURATION 20.3 % (13.2-45.0); POTASSIUM SERUM 4.5 MEQ/L (3.5-5.1); SODIUM LEVEL 142 MEQ/L (136-145); TOTAL IRON BINDING CAPACITY 256 UG/DL (250-450); TOTAL PROTEIN 7.1 GM/DL (6.4-8.2)
[2018-10-29 12:52] LABS: ERYTHROCYTE SEDIMENTATION RATE 20 mm/hr (0-30)
[2018-10-31 00:06] LABS: EBV VIRAL CAPSID AG IgM <36.0 U/mL (0.0-35.9); Lyme Disease IgG/IgM Antibodie <0.91 ISR (0.00-0.90); Lyme Disease IgM Ab Quantitati <0.80 index (0.00-0.79)
== END ==
LOC: M LABDRWAD 10:22
PROVIDERS: ATTEND Physician Assistant
DX: R53.83 Other fatigue (principal); R05 Cough; R50.9 Fever, unspecified

== ENCOUNTER → 2018-11-27 | Outpatient (REF) | payer BC ==
[2018-11-27 17:32] LABS: C REACTIVE PROTEIN QUANTITATIV 1.03 MG/DL (0.00-0.30); FERRITIN 112 NG/ML (8-252); IRON (FE) 56 UG/DL (50-170); PERCENT SATURATION 20.8 % (13.2-45.0); RHEUMATOID FACTOR QUANT < 10.0 IU/ML (<15.0); TOTAL IRON BINDING CAPACITY 269 UG/DL (250-450)
[2018-11-28 12:30] LABS: VITAMIN B12 LEVEL 544 PG/ML (247-911)
[2018-12-03 14:39] LABS: ANTINUCLEAR ANTIBODIES DIRECT Negative (Negative); CYCLIC CITRULLINATED PEPTIDE 12 units (0-19); Lyme Disease IgG/IgM Antibodie <0.91 ISR (0.00-0.90); Lyme Disease IgM Ab Quantitati <0.80 index (0.00-0.79)
== END ==
LOC: M LAB REF 16:25
PROVIDERS: ATTEND Internal Medicine
DX: D50.9 Iron deficiency anemia, unspecified (principal)

== ENCOUNTER → 2019-04-02 | Outpatient (CLI) | payer BC ==
[~2019-04-02] MED LIST changes: -DOXY100T16 PO; +DOXY100T27 PO; -OMEP40CA2 PO; +OMEP40CA97 PO
--- NOTE | 2019-04-02 12:00 | REP ---
BILATERAL SCREENING DIGITAL MAMMOGRAM WITH 3D TOMOSYNTHESIS: There are no palpable abnormalities or other breast complaints. The the patient states she had a clinical breast examination the March,. The the patient states she performs self-breast examinations 12 times per year. The Tyrer-Cuzick Score is: 8.0% . Comparisons are 11/04/2013, 09/24/2015, 12/21/2016 and 03/29/2089. There are scattered areas of fibroglandular density. There is no dominant mass, micro calcific cluster or architectural distortion that would indicate malignancy. There are benign calcifications. There are no additional findings on 3D tomosynthesiss. There is no change from the prior study. Impression: BIRADS/ACR Category 2 mammogram. Benign findings. Recommendation: Routine annual screening mammography. This mammogram was interpreted with the aid of a FDA approved computer-aided detection system. A. Negative mammogram reports should not delay biopsy if a dominant or clinically suspicious mass is present. B. Not all breast cancers are identified by mammography or tomosynthesis. C. Adenosis and dense breasts may obscure an underlying neoplasm. Patient letter M1. Electronically Signed by Dorian Quintero MD 04/02/2019 11:52 A
== END ==
LOC: M WHC 08:52
PROVIDERS: ATTEND Nurse Practitioner Family
DX: Z12.31 Encounter for screening mammogram for malignant neoplasm of breast (principal)

== ENCOUNTER → 2019-04-25 | Outpatient (CLI) | payer BC ==
[~2019-04-25] MED LIST changes: +METHACHOLINE KIT (J7674) INH ONE; -MONT10TA2 PO; +MONT10TA4 PO
--- NOTE | 2019-04-25 09:43 | REP ---
Clinical: Lung screening. History smoking. Comparison: None Technique: Axial low-dose noncontrast images from the thoracic inlet to the upper abdomen using lung screening technique. Findings: The lung kc are well-aerated. The minimal basilar scarring and few small densities measuring no greater than 3 mm likely represent focal chronic scarring rather than active pathology. No consolidation, significant nodule or mass lesion is appreciated. No pleural effusion/reaction or pneumothorax. Tracheobronchial tree is patent. Mediastinum demonstrates mild atherosclerotic changes of the coronary arteries without cardiomegaly. Impression: Lung-RADS category II. No nodule or suspicious abnormality. Revised recommendations suggest annual low-dose surveillance. Electronically Signed by Samuel Cronin MD 04/25/2019 09:34 A
== END ==
LOC: M RAD 08:31
PROVIDERS: ATTEND Internal Medicine Pulmonary Disease
DX: Z12.2 Encounter for screening for malignant neoplasm of respiratory organs (principal); Z87.891 Personal history of nicotine dependence; R06.00 Dyspnea, unspecified; Z88.0 Allergy status to penicillin

== ENCOUNTER → 2019-04-29 | Outpatient (CLI) | payer BC ==
--- NOTE | 2019-04-29 08:44 | PFTRPT ---
Visit Date: 04/29/2019 Referring Doctor: Michelle Corona MD Height: 63.00 Inches Weight: 203.00 Lbs BSA: 1.95 Diagnosis: R06.00 INTERPRETATION: Study of excellent technical quality. Under protocol, methacholine was administered. At a dose of 2.5 mg (13.875 CDUs), a 23% decline in the FEV1 was noted. PC of 1.36 is significant. Flow rates did return to baseline post bronchodilator administration. IMPRESSION: Positive methacholine challenge study. MTDD
== END ==
LOC: M CARPUL 07:49
PROVIDERS: ATTEND Internal Medicine Pulmonary Disease
DX: R06.00 Dyspnea, unspecified (principal)
CPT/HCPCS: 94070; J7674

== ENCOUNTER → 2019-09-25 | Outpatient (REF) | payer BC, OTHER ==
[~2019-09-25] MED LIST changes: -METHACHOLINE KIT (J7674) INH ONE
== END ==
LOC: M LAB REF 11:59
PROVIDERS: ATTEND Internal Medicine
DX: D50.9 Iron deficiency anemia, unspecified (principal)

== ENCOUNTER → 2019-10-28 | Outpatient (CLI) | payer BC ==
[2019-12-23 21:27] LABS: BLOOD UREA NITROGEN 13 MG/DL (7-18)
[2019-12-23 21:28] LABS: CREATININE FOR GFR 0.62 MG/DL (0.55-1.30); GLOMERULAR FILTRATION RATE > 60.0 (>45)
== END ==
LOC: M LAB 08:52
PROVIDERS: ATTEND Specialist
DX: H91.22 Sudden idiopathic hearing loss, left ear (principal)

== ENCOUNTER → 2019-11-04 | Outpatient (CLI) | payer BC ==
[~2019-11-04] MED LIST changes: +PROHANCE 279.3MG/ML 15ML VIAL As Ordered ONE; +PROHANCE 279.3MG/ML 5ML VIAL As Ordered ONE
--- NOTE | 2019-11-04 09:47 | REPVR ---
PROCEDURE INFORMATION: Exam: MR Head Without and With Contrast; Internal Auditory Canals Exam date and time: 11/04/2019 9:19 AM Age: 64 years old Clinical indication: Bilateral hearing loss, memory loss. TECHNIQUE: Imaging protocol: MR of the head without and with intravenous contrast. Exam focused on the internal auditory canals. 3D rendering (Not supervised by radiologist): MIP and/or 3D reconstructed images were created by the technologist. Contrast material: PROHANCE; Contrast volume: 18 ml; Contrast route: INTRAVENOUS (IV); COMPARISON: No relevant prior studies available. FINDINGS: Brain: See "Internal auditory canals" finding. Ventricles: No ventriculomegaly. Mastoid air cells: Unremarkable. No effusions. Internal auditory canals: High-resolution imaging through the internal auditory canals (IACs) demonstrates normal appearance of the seventh and eighth cranial nerve complexes. The cerebellopontine angle cisterns are unremarkable. Bones/joints: Unremarkable. There is no abnormal enhancement. IMPRESSION: High-resolution imaging through the internal auditory canals (IACs) demonstrates normal appearance of the seventh and eighth cranial nerve complexes. The cerebellopontine angle cisterns are unremarkable. Electronically signed by: Sy Osei On 11/04/2019 09:47:32 AM
== END ==
LOC: M RAD 08:27
PROVIDERS: ATTEND Specialist
DX: H91.22 Sudden idiopathic hearing loss, left ear (principal); D33.3 Benign neoplasm of cranial nerves
CPT/HCPCS: 70553; A9576

== ENCOUNTER → 2019-12-16 | Outpatient (REF) | payer BC ==
[~2019-12-16] MED LIST changes: -PROHANCE 279.3MG/ML 15ML VIAL As Ordered ONE; -PROHANCE 279.3MG/ML 5ML VIAL As Ordered ONE
[2019-12-16 14:16] LABS: PERCENT SATURATION 17.4 % (13.2-45.0)
== END ==
LOC: M LAB REF 12:21
PROVIDERS: ATTEND Internal Medicine
DX: D50.9 Iron deficiency anemia, unspecified (principal)

== ENCOUNTER → 2020-04-07 | Outpatient (CLI) | payer BC ==
[~2020-04-07] MED LIST changes: +MONT10TA10 PO; -MONT10TA4 PO
--- NOTE | 2020-04-07 09:49 | REPMRS ---
Patient History The patient states she had a clinical breast exam in 03/2020 Family history of colorectal cancer at age 70 in maternal grandmother, ovarian cancer at age 50 in sister. Took hormonal contraceptives for 7 years. Digital Woman Screen Mammo: April 07, 2020 - Exam #: [id number] Bilateral CC and MLO view(s) were taken. Technologist: Erinn Padgett, Technologist Prior study comparison: April 02, 2019, bilateral digital woman screen mammo performed at [facility]. March 29, 2018, bilateral digital woman screen mammo performed at [facility]. December 21, 2016, digital woman screen mammo performed at [facility]. FINDINGS: There are scattered fibroglandular densities. The Volpara volumetric breast density category is:B. There has been no change in the appearance of the mammogram from the prior studies. There is a mild amount of scattered fibroglandular density which is fairly symmetric. There is no interval development of dominant mass, architectural distortion, or grouped microcalcification suggestive of malignancy. 3-D tomosynthesis shows no additional findings. Assessment: BI-RADS/ACR category 1 mammogram. Negative Mammogram. Recommendation Routine screening mammogram of both breasts in 1 year (for women over age 40). This patient's [facility] Lifetime Breast Cancer Risk is estimated at 7.7 %. This mammogram was interpreted with the aid of an FDA-approved computer-aided dectection system. Electronically Signed By: Antonio Darnell MD 04/07/20 0949
== END ==
LOC: M WHC 08:31
PROVIDERS: ATTEND Nurse Practitioner Family
DX: Z12.31 Encounter for screening mammogram for malignant neoplasm of breast (principal); Z80.41 Family history of malignant neoplasm of ovary

== ENCOUNTER 2020-09-01 08:04 | Day surgery (SDC) | payer BC ==
[~2020-09-01] VITALS: Ht 157.5 cm; Wt 85.7 kg
[~2020-09-01 08:04] MED LIST changes: +CETI10CA2 PO; +FERR324T21 PO; -FERR325T16 PO; +FLUTISP; +MECL-136; +METF500T13; +NS 1,000 ML IV ONE; +OMEP40CA4 PO; -OMEP40CA97 PO; +PURE500C5 PO
[2020-09-01] MEDS ORDERED: fentaNYL 100 MCG/2 ML INJECTION (J3010) As Ordered ONE ×3 (09:10→09:47)
[2020-09-01] MEDS ORDERED: MIDAZOLAM INJ 2MG/2ML VIAL (J2250 PER 1MG) As Ordered ONE ×2 (09:10→09:48)
[2020-09-01] MEDS ORDERED: ONDANSETRON 4MG/2ML VIAL As Ordered ONE ×3 (09:31→16:37)
[2020-09-01] MEDS ORDERED: LABETALOL 100MG/20ML VIAL As Ordered ONE (09:32)
--- NOTE | 2020-09-01 09:43 | ROOR ---
" Patient Name: Alcira Silva Procedure Date: 09/01/2020 9:19 AM Date of : 1955 Age: 64 Room: OP03 Gender: Female Note Status: Finalized Procedure: Upper GI endoscopy Indications: Surveillance for malignancy due to personal history of Lopez's esophagus, Follow-up of previous ablation treatment of Lopez's esophagus Providers: Delio Baker MD Referring MD: Velma Nevarez DO Requesting Provider: Medicines: Monitored Anesthesia Care, Fentanyl || micrograms IV, Midazolam mg IV Complications: No immediate complications. Procedure: Pre-Anesthesia Assessment: - The heart rate, respiratory rate, oxygen saturations, blood pressure, adequacy of pulmonary ventilation, and response to care were monitored throughout the procedure. The Endoscope was introduced through the mouth, and advanced to the second part of duodenum. The upper GI endoscopy was accomplished without difficulty. The patient tolerated the procedure well. Findings: The Z-line was variable and was found 32 cm from the incisors. This was biopsied with a cold forceps for histology. The exam of the esophagus was otherwise normal. Biopsies were taken with a cold forceps in the lower third of the esophagus for histology. A medium-sized hiatal hernia was present. The entire examined stomach was normal. The examined duodenum was normal. Impression: - Z-line variable, 32 cm from the incisors. No definite barretts epithelium is seen. Distal third of esophagus and below Z line biopsied. - Normal stomach with a medium-sized hiatal hernia. - Normal examined duodenum. Recommendation: - Likely repeat upper endoscopy in 3 years for surveillance of Lopez's esophagus. - Telephone endoscopist for pathology results in 2 weeks for definite timing on interval. - Continue present medications. Procedure Code(s): --- Professional --- 05091, Esophagogastroduodenoscopy, flexible, transoral; with biopsy, single or multiple Diagnosis Code(s): --- Professional --- K22.70, Lopez's esophagus without dysplasia Z09, Encounter for follow-up examination after completed treatment for conditions other than malignant neoplasm K44.9, Diaphragmatic hernia without obstruction or gangrene K22.8, Other specified diseases of esophagus CPT copyright 2019 [employer]. All rights reserved. The codes documented in this report are preliminary and upon call center recruiter review may be revised to meet current compliance requirements. Delio Baker MD Delio Baker MD 09/01/2020 9:43:22 AM Electronically signed by Delio Baker MD Number of Addenda: 0 Note Initiated On: 09/01/2020 9:19 AM Estimated Blood Loss: Estimated blood loss: none."
--- NOTE | 2020-09-01 10:02 | ROOR ---
Patient Name: Alcira Silva Procedure Date: 09/01/2020 9:20 AM Date of : 1955 Age: 64 Room: [facility] Gender: Female Note Status: Finalized Procedure: Colonoscopy Indications: Personal history of colonic polyps Providers: Delio Baker MD Referring MD: Velma Nevarez DO Requesting Provider: Medicines: Fentanyl micrograms IV, Midazolam mg IV Complications: No immediate complications. Procedure: Pre-Anesthesia Assessment: - The heart rate, respiratory rate, oxygen saturations, blood pressure, adequacy of pulmonary ventilation, and response to care were monitored throughout the procedure. The Colonoscope was introduced through the anus with the intention of advancing to the cecum. The scope was advanced to the splenic flexure before the procedure was aborted. Medications were given. The patient tolerated the procedure poorly due to the patient's discomfort during the procedure. The quality of the bowel preparation was adequate. Findings: The perianal and digital rectal examinations were normal. The colon (entire examined portion) appeared normal. (Incomplete procedure-patient discomfort) Impression: - Incomplete procedure due to patient discomfort. - The colon to the splenic flexure is normal. - No specimens collected. Recommendation: - Repeat colonoscopy with alternative sedation because the examination was incomplete. Procedure Code(s): --- Professional --- 31219, 53, Colonoscopy, flexible; diagnostic, including collection of specimen(s) by brushing or washing, when performed (separate procedure) Diagnosis Code(s): --- Professional --- Z86.010, Personal history of colonic polyps CPT copyright 2019 [employer]. All rights reserved. The codes documented in this report are preliminary and upon haul cane brakeman review may be revised to meet current compliance requirements. Delio Baker MD Delio Baker MD 09/01/2020 10:02:22 AM Electronically signed by Delio Baker MD Number of Addenda: 0 Note Initiated On: 09/01/2020 9:20 AM Estimated Blood Loss: Estimated blood loss: none.
[2020-09-01] MEDS ORDERED: propofoL 200 MG/20 ML VIAL As Ordered ONE ×3 (15:13→16:08)
[2020-09-01] MEDS ORDERED: LIDOCAINE 2% 100MG/5ML SDV (FOR ANES.) As Ordered ONE (15:21)
--- NOTE | 2020-09-01 16:23 | ROOR ---
Patient Name: Alcira Silva Procedure Date: 09/01/2020 3:34 PM Date of : 1955 Age: 64 Room: Main OR Gender: Female Note Status: Finalized Procedure: Colonoscopy Indications: High risk colon cancer surveillance: Personal history of colonic polyps, (Colonoscopy attempt earlier today was not successful due to inability to adequately sedate. This procedure is a repeat with change in anesthesia protocol and required main OR) Providers: Delio Baker MD Referring MD: Velma Nevarez DO Requesting Provider: Medicines: Propofol per Anesthesia Complications: No immediate complications. Procedure: Pre-Anesthesia Assessment: - The heart rate, respiratory rate, oxygen saturations, blood pressure, adequacy of pulmonary ventilation, and response to care were monitored throughout the procedure. The Colonoscope was introduced through the anus and advanced to the cecum, identified by appendiceal orifice and ileocecal valve. The colonoscopy was somewhat difficult due to a redundant colon. The patient tolerated the procedure well. The quality of the bowel preparation was adequate. Findings: The perianal and digital rectal examinations were normal. Two flat polyps were found in the descending colon. The polyps were 6 to 8 mm in size. These polyps were removed with a hot snare. Resection and retrieval were complete. Multiple medium-mouthed diverticula were found in the sigmoid colon. Small Internal Hemorrhoids. The exam was otherwise without abnormality on direct and retroflexion views. Impression: - Two 6 to 8 mm polyps in the descending colon, removed with a hot snare. Resected and retrieved. - Mild diverticulosis in the sigmoid colon. - Small Internal Hemorrhoids. - The colonoscopy was otherwise normal on direct and retroflexion views. Recommendation: - Repeat colonoscopy in 3 years for surveillance/slightly suboptimal prep in a few areas. - No ibuprofen, naproxen, or other non-steroidal anti-inflammatory drugs for 10 days after polyp removal. Procedure Code(s): --- Professional --- 83868, Colonoscopy, flexible; with removal of tumor(s), polyp(s), or other lesion(s) by snare technique Diagnosis Code(s): --- Professional --- Q43.8, Other specified congenital malformations of intestine K57.30, Diverticulosis of large intestine without perforation or abscess without bleeding K63.5, Polyp of colon Z86.010, Personal history of colonic polyps CPT copyright 2019 [employer]. All rights reserved. The codes documented in this report are preliminary and upon belt puncher review may be revised to meet current compliance requirements. Delio Baker MD Delio Baker MD 09/01/2020 4:22:45 PM Electronically signed by Delio Baker MD Number of Addenda: 0 Note Initiated On: 09/01/2020 3:34 PM Estimated Blood Loss: Estimated blood loss: none.
[2020-09-01] MEDS ORDERED: ONDANSETRON 4MG/2ML VIAL IV PRN (16:45)
[2020-09-01 17:15] VITALS: BP 146/65
== END 2020-09-01 17:33 | disposition home or self-care (01) ==
LOC: M OPP 08:04
PROVIDERS: ATTEND Internal Medicine Gastroenterology
DX: Z12.11 Encounter for screening for malignant neoplasm of colon (principal); Z86.010 Personal history of colon polyps; K63.5 Polyp of colon; Q43.8 Other specified congenital malformations of intestine; K64.8 Other hemorrhoids; K22.8 Other specified diseases of esophagus; K44.9 Diaphragmatic hernia without obstruction or gangrene; K22.70 Barrett's esophagus without dysplasia; Z09 Encounter for follow-up examination after completed treatment for conditions other than malignant neoplasm; K21.9 Gastro-esophageal reflux disease without esophagitis; D64.9 Anemia, unspecified; G47.30 Sleep apnea, unspecified; Z79.899 Other long term (current) drug therapy; Z88.0 Allergy status to penicillin; Z88.1 Allergy status to other antibiotic agents; Z88.8 Allergy status to other drugs, medicaments and biological substances
CPT/HCPCS: 43239; 45385; 88305; J2250; J2405; J3010

== ENCOUNTER → 2021-02-12 | Outpatient (REF) | payer BC ==
[~2021-02-12] MED LIST changes: -NS 1,000 ML IV ONE
[2021-02-12 18:06] LABS: PERCENT SATURATION 18.4 % (13.2-45.0)
== END ==
LOC: M LAB REF 16:14
PROVIDERS: ATTEND Internal Medicine
DX: D50.9 Iron deficiency anemia, unspecified (principal); R10.13 Epigastric pain

== ENCOUNTER → 2021-04-08 | Outpatient (REF) | payer BC ==
[~2021-04-08] MED LIST changes: -MONT10TA10 PO; +MONT10TA97 PO
== END ==
LOC: M SFHCWAGY 13:15
PROVIDERS: ATTEND Nurse Practitioner Women's Health
DX: Z12.4 Encounter for screening for malignant neoplasm of cervix (principal); R87.610 Atypical squamous cells of undetermined significance on cytologic smear of cervix (ASC-US)
CPT/HCPCS: 87624; G0123

== ENCOUNTER → 2021-04-08 | Outpatient (CLI) | payer BC | LOC: M WHC 08:51 | PROVIDERS: ATTEND Nurse Practitioner Women's Health | DX: Z12.31 Encounter for screening mammogram for malignant neoplasm of breast (principal); Z80.0 Family history of malignant neoplasm of digestive organs; Z80.41 Family history of malignant neoplasm of ovary ==

== ENCOUNTER → 2021-08-17 | Outpatient (CLI) | payer BC ==
[2021-08-17 17:23] LABS: PERCENT SATURATION 17.9 % (13.2-45.0)
== END ==
LOC: M WUC 13:19
PROVIDERS: ATTEND Internal Medicine
DX: R06.02 Shortness of breath (principal); Z86.16 Personal history of COVID-19; D50.9 Iron deficiency anemia, unspecified

== ENCOUNTER → 2021-12-10 | Outpatient (REF) | payer BC ==
[2021-12-10 17:36] LABS: FERRITIN 157 NG/ML (8-252); IRON (FE) 47 UG/DL (50-170); PERCENT SATURATION 17.7 % (13.2-45.0); RHEUMATOID FACTOR QUANT < 10.0 IU/ML (<15.0); TOTAL IRON BINDING CAPACITY 266 UG/DL (250-450)
[2021-12-10 18:02] LABS: VITAMIN B12 LEVEL 484 PG/ML (247-911)
[2021-12-15 00:07] LABS: ANA (HEP2) Negative (.); CYCLIC CITRULLINATED PEPTIDE 11 units (0-19)
== END ==
LOC: M LAB REF 16:14
PROVIDERS: ATTEND Internal Medicine
DX: D50.9 Iron deficiency anemia, unspecified (principal); R53.83 Other fatigue; M25.50 Pain in unspecified joint

== ENCOUNTER → 2021-12-13 | Outpatient (CLI) | payer BC ==
[2021-12-13 15:38] LABS: BLOOD UREA NITROGEN 13 MG/DL (7-18); CREATININE FOR GFR 0.68 MG/DL (0.55-1.30); GLOMERULAR FILTRATION RATE > 60.0 (>45)
== END ==
LOC: M LAB 14:05
PROVIDERS: ATTEND Orthopaedic Surgery
DX: M75.41 Impingement syndrome of right shoulder (principal)

== ENCOUNTER → 2021-12-16 | Outpatient (CLI) | payer BC ==
[~2021-12-16] MED LIST changes: +PROHANCE 279.3MG/ML 15ML VIAL ONE; +PROHANCE 279.3MG/ML 5ML VIAL ONE
== END ==
LOC: M PLAIMG 13:16
PROVIDERS: ATTEND Orthopaedic Surgery
DX: M75.41 Impingement syndrome of right shoulder (principal); M19.011 Primary osteoarthritis, right shoulder; M75.81 Other shoulder lesions, right shoulder; S43.401A Unspecified sprain of right shoulder joint, initial encounter; X58.XXXA Exposure to other specified factors, initial encounter; Y92.9 Unspecified place or not applicable; Y93.9 Activity, unspecified; Y99.9 Unspecified external cause status
CPT/HCPCS: 73223; A9576

== ENCOUNTER → 2022-05-02 | Outpatient (CLI) | payer BC ==
[~2022-05-02] MED LIST changes: +ASCO500C3 PO; -DOXY-350 PO; +DOXY-444 PO; -PROHANCE 279.3MG/ML 15ML VIAL ONE; -PROHANCE 279.3MG/ML 5ML VIAL ONE; -PURE500C5 PO
== END ==
LOC: M WHC 09:36
PROVIDERS: ATTEND Nurse Practitioner Family
DX: Z12.31 Encounter for screening mammogram for malignant neoplasm of breast (principal)

== ENCOUNTER → 2022-05-02 | Outpatient (CLI) | payer BC | LOC: M WHC 10:50 | PROVIDERS: ATTEND Nurse Practitioner Family | DX: Z12.31 Encounter for screening mammogram for malignant neoplasm of breast (principal) | CPT/HCPCS: 87624; G0123 ==

== ENCOUNTER → 2023-03-02 | Outpatient (REF) | payer BC, MEDICARE | LOC: M LAB REF 16:31 | PROVIDERS: ATTEND Internal Medicine | DX: N39.0 Urinary tract infection, site not specified (principal) ==

== ENCOUNTER 2023-04-14 02:50 | Observation (INO) | payer MEDICARE, BC ==
[~2023-04-14] VITALS: Ht 157.5 cm; Wt 90.2 kg
[~2023-04-14 02:50] MED LIST changes: -FLON1SPR; +FLON1SPR NARES
[2023-04-14 03:20] LABS: BASO % 0.2 % (0.0-1.0); EOS % 0.1 % (0.0-3.0); HEMATOCRIT 41.3 % (36.0-47.0); LYMPH # 1.2 10^3/uL (1.5-5.0); LYMPH % 7.9 % (24.0-44.0); MEAN CORPUSCULAR HEMOGLOBIN 28.7 pg (27.0-33.0); MEAN CORPUSCULAR HGB CONC 33.9 g/dl (32.0-36.5); MEAN CORPUSCULAR VOLUME 84.8 fl (80.0-96.0); MONO # 0.4 10^3/uL (0.0-0.8); MONO % 2.6 % (2.0-8.0); NEUTROPHILS # 13.7 10^3/uL (1.5-8.5); NEUTROPHILS % 88.6 % (36.0-66.0); PLATELET COUNT, AUTOMATED 307 10^3/uL (150-450); RED BLOOD COUNT 4.87 10^6/uL (4.00-5.40); WHITE BLOOD COUNT 15.5 10^3/uL (4.0-10.0)
[2023-04-14 03:48] LABS: LIPASE 25 U/L (12-53)
[2023-04-14 03:50] LABS: ALBUMIN 4.1 G/DL (3.2-5.2); ALKALINE PHOSPHATASE 56 U/L (46-116); ALT/SGPT 18 U/L (7.0-40); AST/SGOT 13 U/L (<34); BILIRUBIN,DIRECT 0.1 MG/DL (<0.4); BILIRUBIN,TOTAL 0.5 MG/DL (0.3-1.2); BLOOD UREA NITROGEN 10 MG/DL (9-23); CALCIUM LEVEL 9.7 MG/DL (8.3-10.6); CARBON DIOXIDE LEVEL 26 MMOL/L (20-31); CHLORIDE LEVEL 105 MMOL/L (98-107); CREATININE FOR GFR 0.55 MG/DL (0.55-1.30); GLOMERULAR FILTRATION RATE > 60.0 (>45); GLUCOSE, FASTING 158 MG/DL (74-106); POTASSIUM SERUM 4.1 MMOL/L (3.5-5.1); SODIUM LEVEL 140 MMOL/L (136-145); TOTAL PROTEIN 7.1 G/DL (5.7-8.2)
[2023-04-14] MEDS ORDERED: ISOVUE-370 76% 100ML VIAL As Ordered ONE (04:26)
[2023-04-14] MEDS: NS 1,000 ML IV ONE (04:40)
[2023-04-14] MEDS: MORPHINE 4 MG/ML 1ML VIAL IV PRN ×2 (04:40→15:06)
[2023-04-14] MEDS: ONDANSETRON 4MG 2ML VIAL IV ONE ×2 (04:40→08:36)
[2023-04-14 05:41] LABS: RSV AMPLIFICATION NEGATIVE (NEGATIVE)
[2023-04-14] MEDS: metroNIDAZOLE 500 MG in IV 1 EA IV ONE (05:49)
[2023-04-14] MEDS ORDERED: CelecoXIB 400 MG CAP PO ONE (06:00)
[2023-04-14] MEDS: LevoFLOXacin IV 750 MG in IV 1 EA IV ONE (06:40)
[2023-04-14] MEDS ORDERED: CETI-24 PO (06:54)
[2023-04-14] MEDS ORDERED: SYMB16INH INH (06:54)
[2023-04-14] MEDS ORDERED: C 50TAB PO (06:54)
[2023-04-14] MEDS ORDERED: MULT-40 PO (06:54)
[2023-04-14] MEDS ORDERED: LEVA0.6322 INH (06:54)
[2023-04-14] MEDS ORDERED: OMEP-173 PO (06:54)
[2023-04-14] MEDS ORDERED: HOME MED LIST COMPLETE! XX SCH (06:55)
[2023-04-14] MEDS ORDERED: MORPHINE 4 MG/ML 1ML VIAL IV ONE (07:50)
[2023-04-14] MEDS ORDERED: PIPERACILLIN/TAZOBACTAM SOD 3.375 GM in D5W MINI-BAG PLUS 50 ML IV SCH (09:35)
[2023-04-14] MEDS: LR 1,000 ML IV SCH ×2 (11:27→22:20)
[2023-04-14] MEDS: ONDANSETRON 4MG 2ML VIAL IV PRN (11:49)
[2023-04-14 13:54] VITALS: BP 128/96; TEMP 98.6; O2SAT 97
[2023-04-14] MEDS: metroNIDAZOLE 500 MG in IV 1 EA IV SCH (15:05)
[2023-04-14] MEDS: SYMBICORT 160/4.5MCG INHALER 6GM INH SCH (20:00)
[2023-04-14] MEDS: FLUTICASONE PROP 0.05% NASAL SPRAY 16 GM (FLONASE) NARES SCH (21:00)
[2023-04-14] MEDS ORDERED: LIDOCAINE 2% 100MG/5ML SDV (FOR ANES.) As Ordered ONE (21:11)
[2023-04-14] MEDS ORDERED: METOCLOPRAMIDE INJ 10MG/2ML VIAL As Ordered ONE (21:11)
[2023-04-14] MEDS ORDERED: MIDAZOLAM INJ 2MG/2ML VIAL As Ordered ONE (21:11)
[2023-04-14] MEDS ORDERED: fentaNYL 100 MCG/2 ML INJECTION As Ordered ONE (21:11)
[2023-04-14] MEDS ORDERED: diphenhydrAMINE 50MG/ML VIAL As Ordered ONE (21:11)
[2023-04-14] MEDS ORDERED: ETOMIDATE INJ 20MG/10ML VIAL As Ordered ONE (21:11)
[2023-04-14] MEDS ORDERED: ONDANSETRON 4MG 2ML VIAL As Ordered ONE (21:11)
[2023-04-14] MEDS ORDERED: SUGAMMADEX SODIUM 500 MG/5 ML VIAL (BRIDION) As Ordered ONE (21:11)
[2023-04-14] MEDS ORDERED: ROCURONIUM BROMIDE 50MG/5ML VIAL As Ordered ONE (21:11)
[2023-04-14] MEDS ORDERED: ZOSYN 3.375GM VIAL As Ordered ONE (21:14)
[2023-04-14] MEDS ORDERED: ACETAMINOPHEN 1000MG 100ML IV BAG As Ordered ONE (21:27)
[2023-04-14] MEDS ORDERED: KETOROLAC 60MG 2ML VIAL As Ordered ONE (21:32)
[2023-04-14] MEDS ORDERED: HYDROMORPHONE HCL 0.5 MG/ 0.5 ML SYRINGE IV PRN (22:20)
[2023-04-14] MEDS ORDERED: fentaNYL 100 MCG/2 ML INJECTION IV PRN (22:20)
[2023-04-14] MEDS ORDERED: ONDANSETRON 4MG 2ML VIAL IV PRN (22:20)
[2023-04-14] MEDS ORDERED: oxyCODONE 5MG TAB PO PRN (22:20)
[2023-04-14 23:04] VITALS: BP 151/74; TEMP 97.3; O2SAT 95
[2023-04-14 23:30] VITALS: BP 138/67; TEMP 97.3; O2SAT 94
[2023-04-14] MEDS: CIPROFLOXACIN 400 MG in IV 1 EA IV SCH (23:59)
[2023-04-15] VITALS (7 sets, daily range): BP systolic 113–145; BP diastolic 60–65; TEMP 96–97.5; O2SAT 90–95
[2023-04-15] MEDS ORDERED: LEVALBUTEROL HFA 45MCG/ACT 15GM INHALER INH PRN (00:15)
[2023-04-15] MEDS: FLUTICASONE PROP 0.05% NASAL SPRAY 16 GM (FLONASE) NARES SCH (00:47)
[2023-04-15] MEDS: PIPERACILLIN/TAZOBACTAM SOD 3.375 GM in D5W MINI-BAG PLUS 50 ML IV SCH (04:25)
[2023-04-15] MEDS: SYMBICORT 160/4.5MCG INHALER 6GM INH SCH (07:21)
[2023-04-15] MEDS: KETOROLAC 30 MG/ML 1ML VIAL IV PRN (07:43)
[2023-04-15] MEDS: MIRALAX *UNIT DOSE* 17GM PACKET PO SCH (07:44)
[2023-04-15 13:36] LABS: HEMATOCRIT 37.3 % (36.0-47.0); HEMOGLOBIN 12.3 g/dl (12.0-15.5); MEAN CORPUSCULAR HEMOGLOBIN 28.9 pg (27.0-33.0); MEAN CORPUSCULAR VOLUME 87.8 fl (80.0-96.0); PLATELET COUNT, AUTOMATED 217 10^3/uL (150-450); RED BLOOD COUNT 4.25 10^6/uL (4.00-5.40); WHITE BLOOD COUNT 14.8 10^3/uL (4.0-10.0)
[2023-04-15] MEDS ORDERED: METR-265 PO (14:36)
[2023-04-15] MEDS ORDERED: CIPR250T3 PO (14:36)
[2023-04-15] MEDS ORDERED: HYDR-3713 PO (14:36)
[2023-04-15] MEDS ORDERED: ASCORBIC ACID 500 MG TAB PO SCH (21:00)
[2023-04-15] MEDS ORDERED: MULTIVITAMINS/MINERALS THERAP 1 TAB PO SCH (21:00)
[2023-04-15] MEDS ORDERED: FERROUS GLUCONATE 324 MG TAB PO SCH (21:00)
[2023-04-15] MEDS ORDERED: OMEPRAZOLE 20MG CAP PO SCH (21:00)
[2023-04-15] MEDS ORDERED: CETIRIZINE (ZyrTEC) 10 MG TAB PO SCH (21:00)
== END 2023-04-15 15:30 | disposition home or self-care (01) ==
LOC: M ED 02:50 → M SDC 02:51 → M MS5PR 02:52 → ENRESERV 10:48 → M MS5PR 11:15 → M SDC 04-15 15:30
PROVIDERS: ADMIT Surgery; ATTEND Surgery
DX: K35.33 Acute appendicitis with perforation, localized peritonitis, and gangrene, with abscess (principal); J45.909 Unspecified asthma, uncomplicated; G47.30 Sleep apnea, unspecified; R73.03 Prediabetes; D64.9 Anemia, unspecified; K21.9 Gastro-esophageal reflux disease without esophagitis; K22.70 Barrett's esophagus without dysplasia; Z88.0 Allergy status to penicillin; Z88.8 Allergy status to other drugs, medicaments and biological substances; Z79.899 Other long term (current) drug therapy
CPT/HCPCS: 36415; 44970; 74177; 80048; 80076; 81001; 83690; 85025; 85027; 87631; 88304; 94640; 96365; 96366; 96367; 96375; 96376; 99285; G0378; J0131; J0665; J0744; J1100; J1200; J1836; J1885; J1956; J2250; J2405; J2543; J2765; J3010; Q9967; S2900

== ENCOUNTER → 2023-05-17 | Outpatient (REF) | payer MEDICARE, BC ==
[~2023-05-17] MED LIST changes: +C 50TAB PO; +CETI-24 PO; +CIPR250T3 PO; +HYDR-3713 PO; +LEVA0.6322 INH; +METR-265 PO; +MULT-40 PO; +OMEP-173 PO; +SYMB16INH INH
== END ==
LOC: M SFHCWAGY 13:18
PROVIDERS: ATTEND Nurse Practitioner Family
DX: Z12.4 Encounter for screening for malignant neoplasm of cervix (principal); B97.7 Papillomavirus as the cause of diseases classified elsewhere
CPT/HCPCS: 87624; G0123

== ENCOUNTER → 2023-05-17 | Outpatient (CLI) | payer MEDICARE, BC | LOC: M WHC 10:20 | PROVIDERS: ATTEND Nurse Practitioner Family | DX: Z12.31 Encounter for screening mammogram for malignant neoplasm of breast (principal) ==

== ENCOUNTER → 2023-06-14 | Outpatient (REF) | payer MEDICARE, BC ==
[2023-06-14 13:48] LABS: C REACTIVE PROTEIN QUANTITATIV 1.2 MG/DL (<1.0)
[2023-06-14 13:49] LABS: PERCENT SATURATION 18.3 % (13.2-45.0)
[2023-06-14 13:52] LABS: FERRITIN 121.4 NG/ML (7.3-270.7)
[2023-06-14 13:54] LABS: FREE T3 3.5 PG/ML (2.3-4.2)
== END ==
LOC: M LAB REF 12:01
PROVIDERS: ATTEND Physician Assistant Medical
DX: R53.83 Other fatigue (principal); Z86.39 Personal history of other endocrine, nutritional and metabolic disease

== ENCOUNTER → 2023-06-20 | Outpatient (CLI) | payer MEDICARE, BC | LOC: M RAD 09:22 | PROVIDERS: ATTEND Physician Assistant Medical | DX: R22.1 Localized swelling, mass and lump, neck (principal); E03.4 Atrophy of thyroid (acquired) ==

== ENCOUNTER → 2023-08-25 | Outpatient (REF) | payer MEDICARE, BC ==
[~2023-08-25] MED LIST changes: +DOXY-440 PO; -DOXY-444 PO
[2023-08-25 14:06] LABS: C REACTIVE PROTEIN QUANTITATIV 1.7 MG/DL (<1.0)
[2023-08-25 14:08] LABS: PERCENT SATURATION 16.7 % (13.2-45.0)
[2023-08-25 14:10] LABS: FERRITIN 101.8 NG/ML (7.3-270.7)
== END ==
LOC: M LAB REF 12:38
PROVIDERS: ATTEND Physician Assistant Medical
DX: R53.83 Other fatigue (principal); Z11.59 Encounter for screening for other viral diseases; D50.9 Iron deficiency anemia, unspecified

== ENCOUNTER → 2023-11-28 | Outpatient (REF) | payer MEDICARE, BC ==
[2023-11-28 14:03] LABS: FERRITIN 103.2 NG/ML (7.3-270.7)
== END ==
LOC: M LAB REF 13:16
PROVIDERS: ATTEND Physician Assistant Medical
DX: R53.83 Other fatigue (principal); R42 Dizziness and giddiness

== ENCOUNTER → 2023-12-07 | Outpatient (CLI) | payer MEDICARE, BC | LOC: M PLARAD 09:28 | PROVIDERS: ATTEND Internal Medicine | DX: R42 Dizziness and giddiness (principal); I65.23 Occlusion and stenosis of bilateral carotid arteries; I67.2 Cerebral atherosclerosis ==

== ENCOUNTER → 2024-02-27 | Outpatient (CLI) | payer MEDICARE, BC ==
[~2024-02-27] MED LIST changes: -ADV250INH INH; +ADVA1AER9 INH; +BERB500C PO; -LEVA0.6322 INH; +LEVA0.6330 INH
== END ==
LOC: M WUC 12:01
PROVIDERS: ATTEND Physician Assistant Medical
DX: M79.672 Pain in left foot (principal); M77.32 Calcaneal spur, left foot

== ENCOUNTER → 2024-03-19 | Outpatient (REF) | payer MEDICARE, BC ==
[2024-03-19 12:48] LABS: BASO % 0.6 % (0.0-1.0); EOS # 0.1 10^3/uL (0.0-0.5); EOS % 1.6 % (0.0-3.0); HEMATOCRIT 41.8 % (36.0-47.0); HEMOGLOBIN 13.4 g/dl (12.0-15.5); LYMPH # 1.6 10^3/uL (1.5-5.0); MEAN CORPUSCULAR HEMOGLOBIN 28.4 pg (27.0-33.0); MEAN CORPUSCULAR HGB CONC 32.1 g/dl (32.0-36.5); MEAN CORPUSCULAR VOLUME 88.6 fl (80.0-96.0); MONO # 0.4 10^3/uL (0.0-0.8); MONO % 6.8 % (2.0-8.0); NEUTROPHILS # 4.2 10^3/uL (1.5-8.5); NEUTROPHILS % 65.2 % (36.0-66.0); PLATELET COUNT, AUTOMATED 282 10^3/uL (150-450); RED BLOOD COUNT 4.72 10^6/uL (4.00-5.40); WHITE BLOOD COUNT 6.4 10^3/uL (4.0-10.0)
[2024-03-19 13:05] LABS: ERYTHROCYTE SEDIMENTATION RATE 22 mm/hr (0-30)
[2024-03-19 13:22] LABS: ALBUMIN 4.2 G/DL (3.2-5.2); ALKALINE PHOSPHATASE 58 U/L (35-104); ALT/SGPT 19 U/L (7.0-40); AST/SGOT 11 U/L (<34); BILIRUBIN,TOTAL 0.4 MG/DL (0.3-1.2); BLOOD UREA NITROGEN 9 MG/DL (9-23); CALCIUM LEVEL 9.8 MG/DL (8.3-10.6); CARBON DIOXIDE LEVEL 28 MMOL/L (20-31); CHLORIDE LEVEL 106 MMOL/L (98-107); CREATININE FOR GFR 0.48 MG/DL (0.55-1.30); GLOMERULAR FILTRATION RATE > 60.0 (>45); GLUCOSE, FASTING 105 MG/DL (74-106); SODIUM LEVEL 142 MMOL/L (136-145); TOTAL PROTEIN 7.2 G/DL (5.7-8.2)
[2024-03-19 13:24] LABS: RHEUMATOID FACTOR QUANT 5.4 IU/ML (<14)
[2024-03-20 14:02] LABS: ANA SCREEN, IFA NEGATIVE (NEGATIVE)
[2024-03-20 16:36] LABS: SSA SJOGRENS A <1.0 NEG AI (<1.0 NEG); SSB SJOGRENS B <1.0 NEG AI (<1.0 NEG)
== END ==
LOC: M SFHCRHEU 09:03
PROVIDERS: ATTEND Internal Medicine Rheumatology
DX: R79.82 Elevated C-reactive protein (CRP) (principal); R53.83 Other fatigue; R52 Pain, unspecified; Z83.2 Family history of diseases of the blood and blood-forming organs and certain disorders involving the immune mechanism

== ENCOUNTER → 2024-03-28 | Outpatient (CLI) | payer MEDICARE, BC | LOC: M RAD 08:39 | PROVIDERS: ATTEND Internal Medicine Rheumatology | DX: R79.82 Elevated C-reactive protein (CRP) (principal); R52 Pain, unspecified; R53.83 Other fatigue; Z83.2 Family history of diseases of the blood and blood-forming organs and certain disorders involving the immune mechanism ==

== ENCOUNTER 2024-04-22 06:11 | Day surgery (SDC) | payer MEDICARE, BC ==
[~2024-04-22] VITALS: Ht 157.5 cm; Wt 89.7 kg
[~2024-04-22 06:11] MED LIST changes: +BIOT1000 PO; +BUDE10.2 INH; +CURC500C PO; +GINK60CA2 PO; +MM S100C PO; +VITA-176 PO; +ZINC30CA PO; +[UNRECOGNIZED DRUG - OTHER] PO
[2024-04-22] MEDS ORDERED: NS (Normal Saline) 0.9% 1,000 ML IV SCH ×2 (06:25→08:45)
[2024-04-22] MEDS ORDERED: TYLE650T38 PO (06:34)
[2024-04-22] MEDS ORDERED: LIDOCAINE 2% 100MG/5ML SDV (FOR ANES.) As Ordered ONE (06:51)
[2024-04-22] MEDS ORDERED: dexmedeTOMIDine (4MCG/ML)200MCG/50ML BTL (PRECEDEX) As Ordered ONE (06:51)
[2024-04-22] MEDS ORDERED: fentaNYL 100 MCG/2 ML INJECTION As Ordered ONE (06:54)
[2024-04-22] MEDS ORDERED: SUGAMMADEX SODIUM 500 MG/5 ML VIAL (BRIDION) As Ordered ONE (07:22)
[2024-04-22] MEDS ORDERED: ETOMIDATE INJ 20MG/10ML VIAL As Ordered ONE (07:22)
[2024-04-22] MEDS ORDERED: ROCURONIUM BROMIDE 50MG/5ML VIAL As Ordered ONE (07:23)
[2024-04-22] MEDS ORDERED: ONDANSETRON 4MG 2ML VIAL As Ordered ONE (07:25)
[2024-04-22] MEDS ORDERED: MIDAZOLAM INJ 2MG/2ML VIAL As Ordered ONE (07:26)
[2024-04-22] MEDS: SCOPOLAMINE 1MG TRANSDERMAL PATCH TOP ONE (07:33)
[2024-04-22] MEDS ORDERED: ACETAMINOPHEN 1000MG/100ML IV BAG As Ordered ONE (07:53)
[2024-04-22] MEDS ORDERED: oxyCODONE 5MG TAB PO PRN (08:45)
[2024-04-22] MEDS ORDERED: HYDROMORPHONE HCL 0.5 MG/ 0.5 ML SYRINGE IV PRN (08:45)
[2024-04-22] MEDS ORDERED: fentaNYL 100 MCG/2 ML INJECTION IV PRN (08:45)
[2024-04-22] MEDS: ONDANSETRON 4MG 2ML VIAL IV PRN (09:06)
[2024-04-22 10:00] VITALS: BP 115/62; TEMP 98.1; O2SAT 94
== END 2024-04-22 10:11 | disposition home or self-care (01) ==
LOC: M SDC 06:11
PROVIDERS: ATTEND Internal Medicine Gastroenterology
DX: Z12.11 Encounter for screening for malignant neoplasm of colon (principal); D12.2 Benign neoplasm of ascending colon; K21.00 Gastro-esophageal reflux disease with esophagitis, without bleeding; K62.1 Rectal polyp; K57.30 Diverticulosis of large intestine without perforation or abscess without bleeding; K64.8 Other hemorrhoids; D64.9 Anemia, unspecified; K22.89 Other specified disease of esophagus; Z86.0100 Personal history of colon polyps, unspecified; R73.03 Prediabetes; J45.909 Unspecified asthma, uncomplicated; G43.909 Migraine, unspecified, not intractable, without status migrainosus; Z79.51 Long term (current) use of inhaled steroids; Z79.899 Other long term (current) drug therapy; Z90.49 Acquired absence of other specified parts of digestive tract; Z88.0 Allergy status to penicillin; Z88.4 Allergy status to anesthetic agent
CPT/HCPCS: 43239; 45385; 88305; J0131; J1100; J2250; J2405; J3010

== ENCOUNTER → 2024-05-21 | Outpatient (CLI) | payer MEDICARE, BC ==
[~2024-05-21] MED LIST changes: +TYLE650T38 PO
== END ==
LOC: M WHC 09:24
PROVIDERS: ATTEND Nurse Practitioner Family
DX: Z12.31 Encounter for screening mammogram for malignant neoplasm of breast (principal); R92.323 Mammographic fibroglandular density, bilateral breasts

== ENCOUNTER → 2024-05-21 | Outpatient (REF) | payer MEDICARE, BC | LOC: M SFHCWAGY 13:07 | PROVIDERS: ATTEND Nurse Practitioner Family | DX: Z12.4 Encounter for screening for malignant neoplasm of cervix (principal); Z12.31 Encounter for screening mammogram for malignant neoplasm of breast | CPT/HCPCS: 77063; 77067; 87624; G0123 ==

== ENCOUNTER → 2024-06-21 | Outpatient (REF) | payer MEDICARE, BC ==
[2024-06-21 13:05] LABS: PERCENT SATURATION 18.9 % (13.2-45.0)
[2024-06-21 13:07] LABS: FERRITIN 105.1 NG/ML (7.3-270.7)
== END ==
LOC: M LAB REF 12:04
PROVIDERS: ATTEND Physician Assistant Medical
DX: D50.9 Iron deficiency anemia, unspecified (principal)

== ENCOUNTER 2024-10-08 08:30 | Outpatient (RCR) | payer MEDICARE, BC ==
[~2024-10-08 08:30] MED LIST changes: -BIOT1000 PO; +BIOT10002 PO; +CHOL25TA15 PO; -VITA-176 PO
== END 2024-10-10 ==
LOC: M PT 08:30
PROVIDERS: ATTEND Nurse Practitioner Family
DX: N39.3 Stress incontinence (female) (male) (principal)

== ENCOUNTER 2024-10-22 07:47 | Outpatient (RCR) | payer MEDICARE, BC | END 2024-11-10 | LOC: M PT 07:47 | PROVIDERS: ATTEND Nurse Practitioner Family | DX: N39.3 Stress incontinence (female) (male) (principal) ==